=== PATIENT | male | born 1960 | race African-American/Black ===

== ENCOUNTER 2017-06-23 10:38 | Inpatient (IN) | payer OTHER ==
[2017-06-23 12:34] VITALS: BMI 24.3
--- NOTE | 2017-06-23 14:41 | HP ---
COWS - Scale Resting Pulse: 0= [place] 80 or Below Sweatin= Chills/Flushing Restless Observation: 3= Extraneous Movement Pupil Size: 0= Normal to Room Light Bone or Joint Aches: 4=Acute Joint/Muscle Pain Runny Nose/ Eye Tearin= Nasal Congestion GI Upset > 30mins: 2= Nausea/Diarrhea Tremor Observation: 2= Slight Tremor Visible Yawning Observation: 1= 1-2x During Session Anxiety or Irritability: 1=Feels Anxious/Irritable Goose Flesh Skin: 0=Smooth Skin COWS Score: 15 Admission ROS S - HPI Chief Complaint: DETOX TX FOR HEROIN AND COCAINE DEPENDENCE Allergies/Adverse Reactions: Allergies Allergy/AdvReac Type Severity Reaction Status Date / Time No Known Allergies Allergy Verified 06/23/17 12:28 History of Present Illness: 57 Y/O AA/MALE WITH A HX OF HEROIN AND COCAINE DEPENDENCE SEEKING DETOX TX Exam Limitations: No Limitations - Ebola screening Have you traveled outside of the country in the last 21 days: No Have you had contact with anyone from an Ebola affected area: No Have you been sick,other than usual withdrawal symptoms: No Do you have a fever: No - Review of Systems Constitutional: Chills, Loss of Appetite, Night Sweats, Changes in sleep EENT: reports: Cataracts (BOTH EYES), Blurred Vision (WEARS GLASSES), Tearing, Nose Congestion Respiratory: reports: No Symptoms reported Cardiac: reports: No Symptoms Reported GI: reports: Constipated, Diarrhea, Nausea, Poor Appetite, Poor Fluid Intake : reports: Dysuria Musculoskeletal: reports: Back Pain Integumentary: reports: Other (LEFT HEEL HEALING WOUND DUE TO BUMPING LEG ON DOOR) Neuro: reports: No Symptoms reported Endocrine: reports: No Symptoms Reported Hematology: reports: Anemia Psychiatric: reports: Orientated x3, Anxious Other Systems: Reviewed and Negative Patient History - Patient Medical History Hx Anemia: Yes (IN THE PAST) Hx Asthma: No Hx Chronic Obstructive Pulmonary Disease (COPD): No Hx Cardiac Disorders: No Hx Hypertension: Yes (on meds.) HX Cerebrovascular Accident: No Hx Seizures: No Hx Diabetes: No Hx Gastrointestinal Disorders: No Hx Genitourinary Disorders: No Hx Sexually Transmitted Disorders: No Hx Renal Disease (ESRD): No Hx Thyroid Disease: No Hx Human Immunodeficiency Virus (HIV): No (NEGATIVE HX) Hx Hepatitis C: No Hx Depression: No Hx Suicide Attempt: No (DENIES) Hx Bipolar Disorder: No Hx Schizophrenia: No Other Medical History: HX RIGHT WRIST FX WITH CAST IN 1980. - Patient Surgical History Past Surgical History: Yes Hx Cataract Extraction: Yes (BOTH EYES) Hx Breast Biopsy: No Hx Abdominal Surgery: No Hx Appendectomy: No Hx Cholecystectomy: No Hx Genitourinary Surgery: No Hx Orthopedic Surgery: No Other Surgical History: Sx detached retina R eye. in 12/24 Anesthesia Reaction: No - PPD History Previous Implant?: Yes Documented Results: Positive w/o proof Implanted On Prior [facility] Admission?: No Results: CXR TBD PPD to be Administered?: No - Reproductive History Patient is a Female of Child Bearing Age (11 -55 yrs old): No (MALE) Patient : (N/A) - Smoking Cessation Smoking history: Current every day smoker Have you smoked in the past 12 months: Yes Aproximately how many cigarettes per day: 10 Hx Chewing Tobacco Use: No Initiated information on smoking cessation: Yes 'Breaking Loose' booklet given: 06/23/17 - Substance & Tx. History Hx Alcohol Use: No (DENIES) Hx Substance Use: Yes (HEROIN/COCAINE) Substance Use Type: Cocaine, Heroin Hx Substance Use Treatment: Yes (RECENT LAST TX AT [facility]) - Substances Abused Heroin Route: Inhalation Frequency: Daily Amount used: 9-10 BAGS Age of first use: 17 Date of Last Use: 06/23/17 Cocaine Route: Inhalation Frequency: 1-3 times last 30 days Amount used: $50 Age of first use: 21 Date of Last Use: 06/18/17 Family Disease History - Family Disease History Family Disease History: Diabetes: Mother (HTN-), Other: Father ( ), Mother Admission Physical Exam [facility] - Vital Signs Vital Signs: Vital Signs - 24 hr 06/23/17 12:33 Temperature 97 F L Pulse Rate 59 L Respiratory 20 Rate Blood Pressure 146/84 - Physical General Appearance: Yes: Moderate Distress, Irritable, Anxious HEENTM: Yes: EOMI, Normocephalic, KELLE, Pharynx Normal Respiratory: Yes: Chest Non-Tender, Lungs Clear, Normal Breath Sounds, No Respiratory Distress Neck: Yes: No masses,lesions,Nodules, Supple, Trachea in good position Breast: Yes: Breast Exam Deferred Cardiology: Yes: Regular Rhythm, Regular Rate, S1, S2 Abdominal: Yes: Normal Bowel Sounds, Non Tender, Soft Genitourinary: Yes: Other Back: Yes: Within Normal Limits Musculoskeletal: Yes: full range of Motion, Gait Steady Extremities: Yes: Normal Range of Motion, Non-Tender Neurological: Yes: diagnostic cardiac sonographer II-XII NML intact, Fully Oriented, Alert, Motor Strength 5/5 Integumentary: Yes: Dry, Warm Lymphatic: Yes: Within Normal Limits - Diagnostic (1) Opioid dependence with withdrawal Status: Acute (2) Cocaine dependence, uncomplicated Status: Acute (3) Hypertension Status: Acute Qualifiers: Hypertension type: essential hypertension Qualified Code(s): I10 - Essential (primary) hypertension (4) History of anemia Status: Suspected (5) Cataract of both eyes Status: Chronic Qualifiers: Cataract type: juvenile Infantile/juvenile cataract type: unspecified Qualified Code(s): H26.003 - Unspecified infantile and juvenile cataract , bilateral Comment: PT STATES HAD CATARACT AT 16 YRS OLD. Cleared for Admission [facility] - Detox or Rehab [facility] Level of Care: Medically Managed Detox Regimen/Protocol: Methadone [facility] Breath Alcohol Content Breath Alcohol Content: 0 Urine Drug Screen - Results Drug Screen Negative: No Urine Drug Screen Results: PAT-Cocaine, OPI-Opiates, MTD-Methadone
[2017-06-23] MEDS ORDERED: MAGNESIUM CITRATE 300 ML BOTTLE PO PRN (14:55)
[2017-06-23] MEDS ORDERED: hydrOXYzine PAMOATE 25 MG CAPSULE (FP) PO PRN (14:55)
[2017-06-23] MEDS ORDERED: MAG HYDROX/AL HYDROX/SIMETH 30 ML UNIT-DOSE CUP PO PRN (14:55)
[2017-06-23] MEDS ORDERED: MENTHOL/PHENOL 1 EACH UD MM PRN (14:55)
[2017-06-23] MEDS ORDERED: ACETAMINOPHEN 325 MG TABLET (FP) PO PRN (14:55)
[2017-06-23] MEDS ORDERED: LOPERAMIDE HCL 2 MG CAPSULE PO PRN (14:55)
[2017-06-23] MEDS ORDERED: P-EPHED 60MG/TRIPROLIDI 2.5MG TABLET PO PRN (14:55)
[2017-06-23] MEDS ORDERED: guaiFENesin/D-METHORPHAN HB 10 ML UNIT-DOSE CUPS PO PRN (14:55)
[2017-06-23] MEDS ORDERED: MAGNESIUM HYDROX 2400MG/30ML ORAL SUSPENSION 30 ML CUP PO PRN (14:55)
[2017-06-23] MEDS ORDERED: IBUPROFEN 400 MG TABLET (FP) PO PRN (14:55)
[2017-06-23] MEDS ORDERED: NICOTINE POLACRILEX 2 MG GUM BC PRN (14:55)
[2017-06-23] MEDS: diazePAM 5 MG TABLET PO PRN ×2 (17:57→22:44)
[2017-06-23] MEDS: NICOTINE 14 MG/24 HOURS TOPICAL PATCH TD SCH (17:59)
[2017-06-23] MEDS ORDERED: METHADONE HCL 10 MG TABLET (FOR DETOX USE ONLY) PO ONE ×2 (18:00→23:00)
[2017-06-23 20:24] LABS: MCH 27.5 pg (25.7-33.7); MCHC 32.8 g/dl (32.0-35.9); MEAN CELL VOLUME 83.7 fl (80-96); MEAN PLT VOLUME 7.6 fl (7.5-11.1); PLATELET COUNT 305 K/MM3 (134-434); RDW 15.1 % (11.9-15.9); WHITE BLOOD COUNT 8.8 K/mm3 (4.0-10.0)
[2017-06-23 20:28] LABS: SICKLE CELL SCREEN NEGATIVE (NEGATIVE)
[2017-06-23 20:33] LABS: ALBUMIN 3.9 g/dl (3.4-5.0); ANION GAP 6 (8-16); CALCIUM 9.3 mg/dL (8.5-10.1); CO2 27 mmol/L (21-32); CREATININE 1.1 mg/dL (0.7-1.3); GLUCOSE,RANDOM 104 mg/dL (74-106); SGOT/AST 15 U/L (15-37); SGPT/ALT 26 U/L (12-78)
[2017-06-23 20:35] LABS: ALK PHOS 72 U/L (45-117); BILIRUBIN,TOTAL 0.4 mg/dL (0.2-1.0); TOT PROT 7.8 g/dl (6.4-8.2)
[2017-06-23] MEDS: BACITRACIN 0.9 GM PACKET TP SCH (22:44)
[2017-06-23] MEDS: THIAMINE HCL 100 MG TABLET (FP) PO SCH (22:44)
[2017-06-23] MEDS: diphenhydrAMINE HCL 50 MG CAPSULE PO PRN (22:45)
[2017-06-24] MEDS ORDERED: METHADONE HCL 10 MG TABLET (FOR DETOX USE ONLY) PO ONE (10:00)
[2017-06-24 10:13] LABS: HIV 1 & 2 AB NEGATIVE; HIV 1 AGp24 NEGATIVE
[2017-06-24] MEDS: BACITRACIN 0.9 GM PACKET TP SCH ×2 (10:17→21:51)
[2017-06-24] MEDS: diazePAM 5 MG TABLET PO PRN ×3 (10:18→21:51)
[2017-06-24] MEDS: PRENATAL VITAMINS W/ FOLIC ACID TABLET (FP) PO SCH (10:18)
[2017-06-24] MEDS: amLODIPine BESYLATE 5 MG TABLET (FP) PO SCH (10:18)
[2017-06-24] MEDS: NICOTINE 14 MG/24 HOURS TOPICAL PATCH TD SCH (10:18)
--- NOTE | 2017-06-24 10:55 | PN ---
[facility] COWS - Scale Resting Pulse: 0= [place] 80 or Below Sweatin=Flushed/Facial Moisture Restless Observation: 1= Difficult to Sit Still Pupil Size: 0= Normal to Room Light Bone or Joint Aches: 2= Severe Diffuse Aches Runny Nose/ Eye Tearin= Nasal Congestion GI Upset > 30mins: 1= Stomach Cramp Tremor Observation of Outstretched Hands: 2= Slight Tremor Visible Yawning Observation: 2= >3x During Session Anxiety or Irritability: 2=Irritable/Anxious Goose Flesh Skin: 0=Smooth Skin COWS Score: 13 [facility] Progress Note (SOAP) Subjective: sweats interrupted sleep agitation irritable body aches Objective: 06/24/17 10:54 Vital Signs Temperature 98.2 F 06/24/17 10:35 Pulse Rate 64 06/24/17 10:35 Respiratory Rate 18 06/24/17 10:35 Blood Pressure 162/77 06/24/17 10:35 O2 Sat by Pulse Oximetry (%) Laboratory Tests 06/23/17 06/23/17 06/23/17 12:30 13:00 13:00 WBC 8.8 RBC 4.84 Hgb 13.3 Hct 40.5 MCV 83.7 MCH 27.5 MCHC 32.8 RDW 15.1 Plt Count 305 MPV 7.6 Sickle Cell Screen Negative Sodium 139 Potassium 3.9 Chloride 106 Carbon Dioxide 27 Anion Gap 6 L BUN 12 Creatinine 1.1 Creat Clearance w eGFR > 60 Random Glucose 104 Calcium 9.3 Total Bilirubin 0.4 AST 15 ALT 26 Alkaline Phosphatase 72 Total Protein 7.8 Albumin 3.9 RPR Titer HIV 1&2 Antibody Screen Negative HIV P24 Antigen Negative 06/23/17 13:00 WBC RBC Hgb Hct MCV MCH MCHC RDW Plt Count MPV Sickle Cell Screen Sodium Potassium Chloride Carbon Dioxide Anion Gap BUN Creatinine Creat Clearance w eGFR Random Glucose Calcium Total Bilirubin AST ALT Alkaline Phosphatase Total Protein Albumin RPR Titer Nonreactive HIV 1&2 Antibody Screen HIV P24 Antigen awake/alert ambulating no acute distress Assessment: 06/24/17 10:55 withdrawal sx Plan: continue detox increase fluids
--- NOTE | 2017-06-24 15:02 | EKG ---
Test Reason : Blood Pressure : / mmHG Vent. Rate : 063 BPM Atrial Rate : 063 BPM P-R Int : 154 ms QRS Dur : 082 ms QT Int : 432 ms P-R-T Axes : 053 032 029 degrees QTc Int : 442 ms NORMAL SINUS RHYTHM NORMAL ECG NO PREVIOUS ECGS AVAILABLE Confirmed by NANCY GAMING MD ([id number]) on 06/24/2017 3:02:16 PM Referred By: Quirino Jones Confirmed By:NANCY GAMING MD
[2017-06-24 17:23] LABS: URINE APPEARANCE CLEAR; URINE BILIRUBIN 1+ (NEGATIVE); URINE BLOOD NEGATIVE (NEGATIVE); URINE COLOR YELLOW; URINE GLUCOSE (UA) NEGATIVE (NEGATIVE); URINE KETONE NEGATIVE (NEGATIVE); URINE LEUK ESTERASE NEGATIVE (NEGATIVE); URINE NITRITE NEGATIVE (NEGATIVE); URINE PROTEIN TRACE (NEGATIVE); URINE UROBILINOGEN 0.2 mg/dL (0.2-1.0)
[2017-06-24] MEDS: diphenhydrAMINE HCL 50 MG CAPSULE PO PRN (21:51)
[2017-06-24] MEDS: THIAMINE HCL 100 MG TABLET (FP) PO SCH (21:51)
[2017-06-25] MEDS ORDERED: METHADONE HCL 5 MG TABLET (FOR DETOX USE ONLY) PO ONE (10:00)
[2017-06-25] MEDS: PRENATAL VITAMINS W/ FOLIC ACID TABLET (FP) PO SCH (11:01)
[2017-06-25] MEDS: BACITRACIN 0.9 GM PACKET TP SCH ×2 (11:01→21:37)
[2017-06-25] MEDS: amLODIPine BESYLATE 5 MG TABLET (FP) PO SCH (11:01)
[2017-06-25] MEDS: NICOTINE 14 MG/24 HOURS TOPICAL PATCH TD SCH (11:02)
[2017-06-25] MEDS: diazePAM 5 MG TABLET PO PRN ×2 (11:04→18:56)
--- NOTE | 2017-06-25 11:39 | PN ---
S COWS - Scale Resting Pulse: 0= [place] 80 or Below Sweatin=Flushed/Facial Moisture Restless Observation: 1= Difficult to Sit Still Pupil Size: 0= Normal to Room Light Bone or Joint Aches: 2= Severe Diffuse Aches Runny Nose/ Eye Tearin= Nasal Congestion GI Upset > 30mins: 1= Stomach Cramp Tremor Observation of Outstretched Hands: 2= Slight Tremor Visible Yawning Observation: 2= >3x During Session Anxiety or Irritability: 2=Irritable/Anxious Goose Flesh Skin: 3=Piloerection COWS Score: 16 S Progress Note (SOAP) Subjective: tired sluggish sweats chills irritable body aches Objective: 06/25/17 11:38 Vital Signs Temperature 97.7 F 06/25/17 10:00 Pulse Rate 64 06/25/17 10:00 Respiratory Rate 20 06/25/17 10:00 Blood Pressure 147/88 06/25/17 10:00 O2 Sat by Pulse Oximetry (%) Laboratory Tests 06/23/17 06/23/17 06/23/17 12:30 13:00 13:00 WBC 8.8 RBC 4.84 Hgb 13.3 Hct 40.5 MCV 83.7 MCH 27.5 MCHC 32.8 RDW 15.1 Plt Count 305 MPV 7.6 Sickle Cell Screen Negative Sodium Potassium Chloride Carbon Dioxide Anion Gap BUN Creatinine Creat Clearance w eGFR Random Glucose Calcium Total Bilirubin AST ALT Alkaline Phosphatase Total Protein Albumin Urine Color Urine Appearance Urine pH Ur Specific Moose Urine Protein Urine Glucose (UA) Urine Ketones Urine Blood Urine Nitrite Urine Bilirubin Urine Urobilinogen Ur Leukocyte Esterase RPR Titer Hepatitis C Antibody <0.1 HIV 1&2 Antibody Screen Negative HIV P24 Antigen Negative 06/23/17 06/23/17 06/23/17 13:00 13:00 15:00 WBC RBC Hgb Hct MCV MCH MCHC RDW Plt Count MPV Sickle Cell Screen Sodium 139 Potassium 3.9 Chloride 106 Carbon Dioxide 27 Anion Gap 6 L BUN 12 Creatinine 1.1 Creat Clearance w eGFR > 60 Random Glucose 104 Calcium 9.3 Total Bilirubin 0.4 AST 15 ALT 26 Alkaline Phosphatase 72 Total Protein 7.8 Albumin 3.9 Urine Color Yellow Urine Appearance Clear Urine pH 6.0 Ur Specific Moose >= 1.030 H Urine Protein Trace H Urine Glucose (UA) Negative Urine Ketones Negative Urine Blood Negative Urine Nitrite Negative Urine Bilirubin 1+ H Urine Urobilinogen 0.2 Ur Leukocyte Esterase Negative RPR Titer Nonreactive Hepatitis C Antibody HIV 1&2 Antibody Screen HIV P24 Antigen awake/alert ambulating no acute distress Assessment: 06/25/17 11:38 withdrawal sx Plan: continue detox increase fluids
[2017-06-25] MEDS: diphenhydrAMINE HCL 50 MG CAPSULE PO PRN (21:38)
[2017-06-25] MEDS: THIAMINE HCL 100 MG TABLET (FP) PO SCH (21:38)
[2017-06-26] MEDS ORDERED: METHADONE HCL 5 MG TABLET (FOR DETOX USE ONLY) PO ONE (10:00)
[2017-06-26] MEDS: BACITRACIN 0.9 GM PACKET TP SCH ×2 (10:26→22:21)
[2017-06-26] MEDS: amLODIPine BESYLATE 5 MG TABLET (FP) PO SCH (10:26)
[2017-06-26] MEDS: PRENATAL VITAMINS W/ FOLIC ACID TABLET (FP) PO SCH (10:26)
[2017-06-26] MEDS: diazePAM 5 MG TABLET PO PRN (10:26)
[2017-06-26] MEDS: NICOTINE 14 MG/24 HOURS TOPICAL PATCH TD SCH (10:26)
--- NOTE | 2017-06-26 14:13 | PN ---
BHS Progress Note (SOAP) Subjective: alert,irritable,anxious,interrupted sleep,pain in the body and back Objective: 06/26/17 14:12 Vital Signs Temperature 97.0 F L 06/26/17 09:57 Pulse Rate 58 L 06/26/17 09:57 Respiratory Rate 18 06/26/17 09:57 Blood Pressure 156/78 06/26/17 09:57 O2 Sat by Pulse Oximetry (%) Assessment: 06/26/17 14:12 withdrawal symptom Plan: continue detox
[2017-06-26] MEDS: THIAMINE HCL 100 MG TABLET (FP) PO SCH (22:21)
[2017-06-26] MEDS: diphenhydrAMINE HCL 50 MG CAPSULE PO PRN (22:21)
--- NOTE | 2017-06-27 08:45 | PN ---
S Progress Note (SOAP) Subjective: ALERT,NO COMPLAINT Objective: 06/27/17 08:44 Vital Signs Temperature 96.9 F L 06/27/17 06:27 Pulse Rate 52 L 06/27/17 06:27 Respiratory Rate 16 06/27/17 06:27 Blood Pressure 146/76 06/27/17 06:27 O2 Sat by Pulse Oximetry (%) Assessment: 06/27/17 08:44 STABLE,NO WITHDRAWAL SYMPTOM Plan: DISCHARGE TODAY,FOLLOW UP WITH AFTER CARE PROGRAM ARRANGEMENT
--- NOTE | 2017-06-27 08:46 | DS ---
[facility] Detox Discharge Summary Admission Date: 06/23/17 Discharge Date: 06/27/17 - History Present History: Cocaine Dependence, Opioid Dependence Additional Comments: FOLLOW UP WITH AFTER CARE PROGRAM ARRANGEMENT Pertinent Past History: HYPERTENSION CATARACT BOTH EYES - Physical Exam Results Vital Signs: Vital Signs Temperature 96.9 F L 06/27/17 06:27 Pulse Rate 52 L 06/27/17 06:27 Respiratory Rate 16 06/27/17 06:27 Blood Pressure 146/76 06/27/17 06:27 O2 Sat by Pulse Oximetry (%) Pertinent Admission Physical Exam Findings: WITHDRAWAL SYMPTOM - Treatment Hospital Course: Detox Protocol Followed, Detoxed Safely, Responded well, Discharged Condition Good Patient has Accepted a Rehab Referral to: DECLINED - Medication Discharge Medications: Ambulatory Orders Amlodipine Besylate [Norvasc -] 5 mg PO DAILY 06/23/17 - Diagnosis (1) Opioid dependence with withdrawal Current Visit: Yes Status: Acute (2) Cocaine dependence, uncomplicated Current Visit: Yes Status: Acute (3) Hypertension Current Visit: Yes Status: Acute (4) Cataract of both eyes Current Visit: Yes Status: Chronic Qualifiers: Cataract type: juvenile Infantile/juvenile cataract type: unspecified Qualified Code(s): H26.003 - Unspecified infantile and juvenile cataract , bilateral - AMA Did Patient Leave Against Medical Advice: No
[2017-06-27] MEDS: amLODIPine BESYLATE 5 MG TABLET (FP) PO SCH (09:24)
[2017-06-27] MEDS: BACITRACIN 0.9 GM PACKET TP SCH (09:24)
[2017-06-27] MEDS: PRENATAL VITAMINS W/ FOLIC ACID TABLET (FP) PO SCH (09:24)
[2017-06-27] MEDS: NICOTINE 14 MG/24 HOURS TOPICAL PATCH TD SCH (09:25)
[2017-06-27] MEDS ORDERED: METHADONE HCL 10 MG TABLET (FOR DETOX USE ONLY) PO ONE (10:00)
[2017-06-27 10:47] VITALS: BP 144/77; PULSE 57; TEMP 97
[2017-06-28] MEDS ORDERED: METHADONE HCL 5 MG TABLET (FOR DETOX USE ONLY) PO ONE (06:00)
== END 2017-06-27 09:37 | disposition home or self-care (01) | DRG 773 ==
LOC: YASAS 10:38 → Y6N 15:26
PROVIDERS: ADMIT Internal Medicine; ATTEND Internal Medicine
PROC: HZ2ZZZZ Detoxification Services for Substance Abuse Treatment (ICD-10-PCS; principal; 2017-06-23)
DX: F11.23 Opioid dependence with withdrawal (principal); F14.20 Cocaine dependence, uncomplicated; F17.210 Nicotine dependence, cigarettes, uncomplicated; I10 Essential (primary) hypertension; H26.8 Other specified cataract; Z86.2 Personal history of diseases of the blood and blood-forming organs and certain disorders involving the immune mechanism
CPT/HCPCS: 36415; 71020-TC; 80053; 81003; 85027; 85660; 86593; 86803; 87389; 93005; 93010

== ENCOUNTER 2017-11-17 00:58 | Inpatient (IN) | payer OTHER ==
[2017-11-17] MEDS ORDERED: MAG HYDROX/AL HYDROX/SIMETH 30 ML UNIT-DOSE CUP PO PRN (01:05)
[2017-11-17] MEDS ORDERED: MAGNESIUM CITRATE 300 ML BOTTLE PO PRN (01:05)
[2017-11-17] MEDS ORDERED: LOPERAMIDE HCL 2 MG CAPSULE PO PRN (01:05)
[2017-11-17] MEDS ORDERED: MAGNESIUM HYDROX 2400MG/30ML ORAL SUSPENSION 30 ML CUP PO PRN (01:05)
[2017-11-17] MEDS ORDERED: guaiFENesin/D-METHORPHAN HB 10 ML UNIT-DOSE CUPS PO PRN (01:05)
[2017-11-17] MEDS ORDERED: ACETAMINOPHEN 325 MG TABLET (FP) PO PRN (01:05)
[2017-11-17] MEDS ORDERED: MENTHOL/PHENOL 1 EACH UD MM PRN (01:05)
[2017-11-17] MEDS ORDERED: IBUPROFEN 400 MG TABLET (FP) PO PRN (01:05)
[2017-11-17] MEDS ORDERED: P-EPHED 60MG/TRIPROLIDI 2.5MG TABLET PO PRN (01:05)
[2017-11-17] MEDS ORDERED: METHADONE HCL 10 MG TABLET (FOR DETOX USE ONLY) PO ONE ×3 (01:05→23:00)
--- NOTE | 2017-11-17 01:08 | HP ---
COWS - Scale Resting Pulse: 0= [place] 80 or Below Sweatin=Flushed/Facial Moisture Restless Observation: 1= Difficult to Sit Still Pupil Size: 1= Pupils >than Normal Bone or Joint Aches: 2= Severe Diffuse Aches Runny Nose/ Eye Tearin= Runny Nose/Eyes GI Upset > 30mins: 2= Nausea/Diarrhea Tremor Observation: 1= Tremor Hitchcock, Not Seen Yawning Observation: 2= >3x During Session Anxiety or Irritability: 2=Irritable/Anxious Goose Flesh Skin: 0=Smooth Skin COWS Score: 15 Admission ROS S - [facility] Chief Complaint: WITHDRAWAL SYMPTOMS Allergies/Adverse Reactions: Allergies Allergy/AdvReac Type Severity Reaction Status Date / Time No Known Allergies Allergy Verified 06/23/17 12:28 History of Present Illness: 57 Y.O. MAN WITH AN EXTENSIVE HISTORY OF OPIOID DEPENDENCE IS HERE SEEKING DETOX. Exam Limitations: No Limitations - Ebola screening Have you traveled outside of the country in the last 21 days: No Have you had contact with anyone from an Ebola affected area: No Have you been sick,other than usual withdrawal symptoms: No Do you have a fever: No - Review of Systems Constitutional: Chills, Night Sweats, Changes in sleep EENT: reports: Cataracts, Tearing Respiratory: reports: No Symptoms reported Cardiac: reports: No Symptoms Reported GI: reports: Diarrhea, Nausea, Vomiting, Abdominal cramping : reports: No Symptoms Reported Musculoskeletal: reports: Back Pain, Neck Pain Integumentary: reports: No Symptoms Reported Neuro: reports: No Symptoms reported Endocrine: reports: No Symptoms Reported Hematology: reports: No Symptoms Reported Psychiatric: reports: Mood/Affect Appropiate, Anxious Other Systems: Reviewed and Negative Patient History - Patient Medical History Hx Anemia: Yes (IN THE PAST) Hx Asthma: No Hx Chronic Obstructive Pulmonary Disease (COPD): No Hx Cancer: No Hx Cardiac Disorders: No Hx Congestive Heart Failure: No Hx Hypertension: Yes (NOT ON MEDS) Hx Hypercholesterolemia: No Hx Pacemaker: No HX Cerebrovascular Accident: No Hx Seizures: No Hx Dementia: No Hx Diabetes: No Hx Gastrointestinal Disorders: No Hx Liver Disease: No Hx Genitourinary Disorders: No Hx Sexually Transmitted Disorders: No Hx Renal Disease (ESRD): No Hx Thyroid Disease: No Hx Human Immunodeficiency Virus (HIV): No (NEGATIVE HX) Hx Hepatitis C: No Hx Depression: No Hx Suicide Attempt: No (DENIES) Hx Bipolar Disorder: No Hx Schizophrenia: No - Patient Surgical History Past Surgical History: Yes Hx Neurologic Surgery: No Hx Cataract Extraction: Yes (BOTH EYES) Hx Cardiac Surgery: No Hx Lung Surgery: No Hx Breast Surgery: No Hx Breast Biopsy: No Hx Abdominal Surgery: No Hx Appendectomy: No Hx Cholecystectomy: No Hx Genitourinary Surgery: No Hx Orthopedic Surgery: No Other Surgical History: Sx detached retina R eye. in 12/24 Anesthesia Reaction: No - PPD History Results: CXR PPD to be Administered?: No - Reproductive History Patient is a Female of Child Bearing Age (11 -55 yrs old): No - Smoking Cessation Smoking history: Current every day smoker Have you smoked in the past 12 months: Yes Aproximately how many cigarettes per day: 10 Hx Chewing Tobacco Use: No Initiated information on smoking cessation: Yes 'Breaking Loose' booklet given: 11/17/17 - Substance & Tx. History Hx Alcohol Use: No Hx Substance Use: Yes Substance Use Type: Heroin Hx Substance Use Treatment: Yes (DETOX: 06/2017) - Substances Abused Heroin Route: Inhalation Frequency: Daily Amount used: 8 BAGS Age of first use: 23 Date of Last Use: 11/17/17 Family Disease History - Family Disease History Family Disease History: Diabetes: Mother (HTN-), Other: Father ( ), Mother Admission Physical Exam [facility] - Vital Signs Vital Signs: Last Vital Signs Temp Pulse Resp BP Pulse Ox 97.8 F 77 16 142/84 11/17/17 01:17 11/17/17 01:17 11/17/17 01:17 11/17/17 01:17 - Physical General Appearance: Yes: Anxious HEENTM: Yes: Rhinorrhea, Other (Cataract of right eye; minimal vison) Respiratory: Yes: Chest Non-Tender, Lungs Clear, Normal Breath Sounds Neck: Yes: No masses,lesions,Nodules, Trachea in good position Breast: Yes: Breast Exam Deferred Cardiology: Yes: Regular Rhythm, Regular Rate Abdominal: Yes: Normal Bowel Sounds, Non Tender, Flat, Soft Genitourinary: Yes: Other (NO COMPLAINTS REPORTED) Back: Yes: Normal Inspection Musculoskeletal: Yes: Back pain Extremities: Yes: Normal Inspection, Normal Range of Motion, Non-Tender Neurological: Yes: Alert, Normal Mood/Affect, Normal Response Integumentary: Yes: Normal Color, Dry, Warm Lymphatic: Yes: Within Normal Limits - Diagnostic (1) Blindness of right eye Current Visit: Yes Status: Chronic (2) Opioid dependence with withdrawal Current Visit: Yes Status: Chronic (3) Cataract of both eyes Current Visit: Yes Status: Chronic Qualifiers: Cataract type: juvenile Infantile/juvenile cataract type: unspecified Qualified Code(s): H26.003 - Unspecified infantile and juvenile cataract, bilateral Comment: PT STATES HAD CATARACT AT 16 YRS OLD. (4) Hypertension Current Visit: Yes Status: Chronic Qualifiers: Hypertension type: essential hypertension Qualified Code(s): I10 - Essential (primary) hypertension Cleared for Admission [facility] - Detox or Rehab S Level of Care: Medically Managed Detox Regimen/Protocol: Methadone [facility] Breath Alcohol Content Breath Alcohol Content: 0 Vital Signs - Vital Signs Vital Signs Refused: No Temperature: 97.8 F Temperature Source: Oral Pulse Rate: 77 Respiratory Rate: 16 Blood Pressure: 142/84 BP Location: Left Arm Blood Pressure Position: Sitting - Height Height: 6 ft 7 in - Weight Weight: 200 lb Weight Measurement Method: Stated by Patient Body Mass Index (BMI): 22.5 Urine Drug Screen - Control Is Test Valid: Yes - Results Drug Screen Negative: No Urine Drug Screen Results: OPI-Opiates, MTD-Methadone, OXY-Oxycodone
[2017-11-17 01:11] VITALS: BMI 22.5
[2017-11-17] MEDS ORDERED: cloNIDine HCL 0.1 MG TABLET PO PRN (01:44)
[2017-11-17] MEDS: diazePAM 5 MG TABLET PO PRN ×2 (01:51→22:12)
[2017-11-17] MEDS ORDERED: amLODIPine BESYLATE 5 MG TABLET (FP) PO SCH (06:00)
--- NOTE | 2017-11-17 09:38 | EKG ---
Test Reason : Blood Pressure : / mmHG Vent. Rate : 064 BPM Atrial Rate : 064 BPM P-R Int : 142 ms QRS Dur : 090 ms QT Int : 438 ms P-R-T Axes : 057 031 031 degrees QTc Int : 451 ms NORMAL SINUS RHYTHM technically difficult study ABNORMAL ECG WHEN COMPARED WITH ECG OF 23-JUN-2017 16:17, NO SIGNIFICANT CHANGE WAS FOUND Confirmed by DAT TREJO MD ([id number]) on 11/17/2017 9:38:18 AM Referred By: Confirmed By:DAT TREJO MD
--- NOTE | 2017-11-17 09:38 | EKG ---
Test Reason : Blood Pressure : / mmHG Vent. Rate : 056 BPM Atrial Rate : 056 BPM P-R Int : 158 ms QRS Dur : 088 ms QT Int : 438 ms P-R-T Axes : 047 031 011 degrees QTc Int : 422 ms SINUS BRADYCARDIA SEPTAL INFARCT , AGE UNDETERMINED ABNORMAL ECG WHEN COMPARED WITH ECG OF 17-NOV-2017 01:30, NO SIGNIFICANT CHANGE WAS FOUND Confirmed by DAT TREJO MD ([id number]) on 11/17/2017 9:38:35 AM Referred By: Confirmed By:DAT TREJO MD
[2017-11-17 10:20] LABS: HEMATOCRIT 37.9 % (35.4-49); HEMOGLOBIN 11.9 GM/dL (11.7-16.9); MCHC 31.4 g/dl (32.0-35.9); MEAN CELL VOLUME 82.8 fl (80-96); MEAN PLT VOLUME 7.2 fl (7.5-11.1); PLATELET COUNT 232 K/MM3 (134-434); RBC 4.57 M/mm3 (4.00-5.60); RDW 15.4 % (11.9-15.9); WHITE BLOOD COUNT 11.6 K/mm3 (4.0-10.0)
--- NOTE | 2017-11-17 10:23 | PN ---
[facility] COWS - Scale Resting Pulse: 0= [place] 80 or Below Sweatin=Flushed/Facial Moisture Restless Observation: 1= Difficult to Sit Still Pupil Size: 0= Normal to Room Light Bone or Joint Aches: 2= Severe Diffuse Aches Runny Nose/ Eye Tearin= Runny Nose/Eyes GI Upset > 30mins: 2= Nausea/Diarrhea Tremor Observation of Outstretched Hands: 2= Slight Tremor Visible Yawning Observation: 2= >3x During Session Anxiety or Irritability: 2=Irritable/Anxious Goose Flesh Skin: 0=Smooth Skin COWS Score: 15 BHS Progress Note (SOAP) Subjective: irritable agitation sweats chills body aches nausea Objective: 11/17/17 10:20 Vital Signs Temperature 96.8 F L 11/17/17 06:31 Pulse Rate 62 11/17/17 06:31 Respiratory Rate 16 11/17/17 06:31 Blood Pressure 130/60 11/17/17 06:31 O2 Sat by Pulse Oximetry (%) labs pending aaox3 ambulating no acute distress Assessment: 11/17/17 10:21 withdrawal sx Plan: continue detox increase fluids labs pending
[2017-11-17] MEDS: PRENATAL VITAMINS W/ FOLIC ACID TABLET (FP) PO SCH (10:25)
[2017-11-17 10:26] LABS: ANION GAP 7 (8-16); CALCIUM 8.5 mg/dL (8.5-10.1); CHLORIDE 106 mmol/L (98-107); CO2 29 mmol/L (21-32); SODIUM 142 mmol/L (136-145)
[2017-11-17 10:32] LABS: ALBUMIN 3.1 g/dl (3.4-5.0); ALK PHOS 69 U/L (45-117); BILIRUBIN,TOTAL 0.3 mg/dL (0.2-1.0); BLOOD UREA NITROGEN 16 mg/dL (7-18); CREATININE 0.9 mg/dL (0.7-1.3); GLUCOSE,RANDOM 111 mg/dL (74-106); SGOT/AST 12 U/L (15-37); SGPT/ALT 20 U/L (12-78); TOT PROT 6.3 g/dl (6.4-8.2)
[2017-11-17] MEDS: THIAMINE HCL 100 MG TABLET (FP) PO SCH (22:11)
[2017-11-18] MEDS ORDERED: METHADONE HCL 10 MG TABLET (FOR DETOX USE ONLY) PO ONE (10:00)
--- NOTE | 2017-11-18 10:06 | PN ---
[facility] COWS - Scale Resting Pulse: 4= OR > 121 Sweatin=Flushed/Facial Moisture Restless Observation: 1= Difficult to Sit Still Pupil Size: 0= Normal to Room Light Bone or Joint Aches: 2= Severe Diffuse Aches Runny Nose/ Eye Tearin= Runny Nose/Eyes GI Upset > 30mins: 0= None Tremor Observation of Outstretched Hands: 2= Slight Tremor Visible Yawning Observation: 2= >3x During Session Anxiety or Irritability: 2=Irritable/Anxious Goose Flesh Skin: 0=Smooth Skin COWS Score: 17 BHS Progress Note (SOAP) Subjective: irritable agitation sweats shakes interrupted sleep Objective: 11/18/17 10:07 Vital Signs Temperature 98 F 11/18/17 06:28 Pulse Rate 58 L 11/18/17 06:28 Respiratory Rate 16 11/18/17 06:28 Blood Pressure 137/64 11/18/17 06:28 O2 Sat by Pulse Oximetry (%) Laboratory Tests 11/17/17 11/17/17 11/17/17 07:00 07:00 07:00 WBC 11.6 H D RBC 4.57 Hgb 11.9 D Hct 37.9 MCV 82.8 MCH 26.0 MCHC 31.4 L RDW 15.4 Plt Count 232 D MPV 7.2 L Sodium 142 Potassium 4.0 Chloride 106 Carbon Dioxide 29 Anion Gap 7 L BUN 16 D Creatinine 0.9 Creat Clearance w eGFR > 60 Random Glucose 111 H Calcium 8.5 Total Bilirubin 0.3 D AST 12 L ALT 20 D Alkaline Phosphatase 69 Total Protein 6.3 L Albumin 3.1 L D RPR Titer Hepatitis C Antibody <0.1 HIV 1&2 Antibody Screen HIV P24 Antigen 11/17/17 11/17/17 07:00 07:00 WBC RBC Hgb Hct MCV MCH MCHC RDW Plt Count MPV Sodium Potassium Chloride Carbon Dioxide Anion Gap BUN Creatinine Creat Clearance w eGFR Random Glucose Calcium Total Bilirubin AST ALT Alkaline Phosphatase Total Protein Albumin RPR Titer Nonreactive Hepatitis C Antibody HIV 1&2 Antibody Screen Negative HIV P24 Antigen Negative aaox3 ambulating no acute distress Assessment: 11/18/17 10:16 withdrawal sx Plan: continue detox increase fluids clonidine 0.1mg bid
[2017-11-18] MEDS: PRENATAL VITAMINS W/ FOLIC ACID TABLET (FP) PO SCH (10:49)
[2017-11-18] MEDS: cloNIDine HCL 0.1 MG TABLET PO SCH ×2 (10:50→22:03)
[2017-11-18] MEDS: THIAMINE HCL 100 MG TABLET (FP) PO SCH (22:03)
[2017-11-18] MEDS: diazePAM 5 MG TABLET PO PRN (22:03)
[2017-11-19] MEDS: diazePAM 5 MG TABLET PO PRN ×3 (05:56→22:11)
[2017-11-19] MEDS ORDERED: METHADONE HCL 5 MG TABLET (FOR DETOX USE ONLY) PO ONE (10:00)
[2017-11-19] MEDS: PRENATAL VITAMINS W/ FOLIC ACID TABLET (FP) PO SCH (10:42)
[2017-11-19] MEDS: cloNIDine HCL 0.1 MG TABLET PO SCH (10:44)
--- NOTE | 2017-11-19 12:53 | PN ---
BHS Progress Note (SOAP) Subjective: irritable sweats shakes body aches Objective: 11/19/17 12:52 Vital Signs Temperature 96.1 F L 11/19/17 10:41 Pulse Rate 45 L 11/19/17 10:41 Respiratory Rate 18 11/19/17 10:41 Blood Pressure 144/80 11/19/17 10:41 O2 Sat by Pulse Oximetry (%) aaox3 ambulating no acute distress Assessment: 11/19/17 12:53 withdrawal sx Plan: continue detox increase fluids
[2017-11-19] MEDS: cloNIDine HCL 0.1 MG TABLET PO PRN (22:11)
[2017-11-19] MEDS: THIAMINE HCL 100 MG TABLET (FP) PO SCH (22:11)
[2017-11-20] MEDS ORDERED: METHADONE HCL 5 MG TABLET (FOR DETOX USE ONLY) PO ONE (10:00)
[2017-11-20] MEDS: PRENATAL VITAMINS W/ FOLIC ACID TABLET (FP) PO SCH (10:37)
[2017-11-20] MEDS: cloNIDine HCL 0.1 MG TABLET PO PRN ×2 (10:39→22:30)
[2017-11-20] MEDS: hydrOXYzine PAMOATE 50 MG CAPSULE (FP) PO PRN ×2 (10:39→22:30)
--- NOTE | 2017-11-20 13:19 | PN ---
BHS Progress Note (SOAP) Subjective: night sweats anxiety agitation Objective: 11/20/17 13:17 Vital Signs Temperature 97.7 F 11/20/17 10:39 Pulse Rate 53 L 11/20/17 10:39 Respiratory Rate 18 11/20/17 10:39 Blood Pressure 139/99 11/20/17 10:39 O2 Sat by Pulse Oximetry (%) noted Assessment: 11/20/17 13:18 withdrawal sx not in acute distress ambulating steadily in hallway Plan: continue with detox
[2017-11-20] MEDS: THIAMINE HCL 100 MG TABLET (FP) PO SCH (22:30)
[2017-11-21] MEDS ORDERED: METHADONE HCL 10 MG TABLET (FOR DETOX USE ONLY) PO ONE (10:00)
[2017-11-21] MEDS: PRENATAL VITAMINS W/ FOLIC ACID TABLET (FP) PO SCH (10:27)
[2017-11-21] MEDS: cloNIDine HCL 0.1 MG TABLET PO PRN ×2 (10:27→22:29)
[2017-11-21] MEDS: hydrOXYzine PAMOATE 50 MG CAPSULE (FP) PO PRN ×2 (10:27→22:29)
--- NOTE | 2017-11-21 11:32 | PN ---
B[facility] Progress Note (SOAP) Subjective: mild gi distress general body ache can not sleep through the night Objective: 11/21/17 11:31 Vital Signs Temperature 96.1 F L 11/21/17 10:00 Pulse Rate 55 L 11/21/17 10:00 Respiratory Rate 18 11/21/17 10:00 Blood Pressure 118/52 11/21/17 10:00 O2 Sat by Pulse Oximetry (%) Laboratory Last Values WBC 11.6 K/mm3 (4.0-10.0) H D 11/17/17 07:00 RBC 4.57 M/mm3 (4.00-5.60) 11/17/17 07:00 Hgb 11.9 GM/dL (11.7-16.9) D 11/17/17 07:00 Hct 37.9 % (35.4-49) 11/17/17 07:00 MCV 82.8 fl (80-96) 11/17/17 07:00 MCH 26.0 pg (25.7-33.7) 11/17/17 07:00 MCHC 31.4 g/dl (32.0-35.9) L 11/17/17 07:00 RDW 15.4 % (11.9-15.9) 11/17/17 07:00 Plt Count 232 K/MM3 (134-434) D 11/17/17 07:00 MPV 7.2 fl (7.5-11.1) L 11/17/17 07:00 Sodium 142 mmol/L (136-145) 11/17/17 07:00 Potassium 4.0 mmol/L (3.5-5.1) 11/17/17 07:00 Chloride 106 mmol/L (98-107) 11/17/17 07:00 Carbon Dioxide 29 mmol/L (21-32) 11/17/17 07:00 Anion Gap 7 (8-16) L 11/17/17 07:00 BUN 16 mg/dL (7-18) D 11/17/17 07:00 Creatinine 0.9 mg/dL (0.7-1.3) 11/17/17 07:00 Creat Clearance w eGFR > 60 (>60) 11/17/17 07:00 Random Glucose 111 mg/dL (74-106) H 11/17/17 07:00 Calcium 8.5 mg/dL (8.5-10.1) 11/17/17 07:00 Total Bilirubin 0.3 mg/dL (0.2-1.0) D 11/17/17 07:00 AST 12 U/L (15-37) L 11/17/17 07:00 ALT 20 U/L (12-78) D 11/17/17 07:00 Alkaline Phosphatase 69 U/L (45-117) 11/17/17 07:00 Total Protein 6.3 g/dl (6.4-8.2) L 11/17/17 07:00 Albumin 3.1 g/dl (3.4-5.0) L D 11/17/17 07:00 RPR Titer Nonreactive (NONREACTIVE) 11/17/17 07:00 Hepatitis C Antibody <0.1 s/co ratio (0.0-0.9) 11/17/17 07:00 HIV 1&2 Antibody Screen Negative 11/17/17 07:00 HIV P24 Antigen Negative 11/17/17 07:00 lab noted Assessment: 11/21/17 11:31 withdrawal sx Plan: continue detox
[2017-11-21] MEDS: THIAMINE HCL 100 MG TABLET (FP) PO SCH (22:29)
[2017-11-22] MEDS ORDERED: METHADONE HCL 5 MG TABLET (FOR DETOX USE ONLY) PO ONE (06:00)
[2017-11-22 06:45] VITALS: BP 130/90; PULSE 64; TEMP 97.5
--- NOTE | 2017-11-22 08:15 | DS ---
[facility] Detox Discharge Summary Admission Date: 11/17/17 Discharge Date: 11/22/17 - History Present History: Opioid Dependence Additional Comments: FOLLOW UP WITH AFTER CARE PROGRAM ARRANGEMENT Pertinent Past History: HYPERTENSION - Physical Exam Results Vital Signs: Vital Signs Temperature 97.5 F L 11/22/17 06:00 Pulse Rate 64 11/22/17 06:00 Respiratory Rate 18 11/22/17 06:00 Blood Pressure 130/90 11/22/17 06:00 O2 Sat by Pulse Oximetry (%) Pertinent Admission Physical Exam Findings: WITHDRAWAL SYMPTOM Vital Signs Temperature 97.5 F L 11/22/17 06:00 Pulse Rate 64 11/22/17 06:00 Respiratory Rate 18 11/22/17 06:00 Blood Pressure 130/90 11/22/17 06:00 O2 Sat by Pulse Oximetry (%) - Treatment Hospital Course: Detox Protocol Followed, Detoxed Safely, Responded well, Discharged Condition Good Patient has Accepted a Rehab Referral to: DECLINED - Medication Discharge Medications: Ambulatory Orders Amlodipine Besylate [Norvasc -] 5 mg PO DAILY #30 tab 06/27/17 - Diagnosis (1) Opioid dependence with withdrawal Current Visit: Yes Status: Chronic (2) Blindness of right eye Current Visit: Yes Status: Chronic (3) Cataract of both eyes Current Visit: Yes Status: Chronic Qualifiers: Cataract type: juvenile Infantile/juvenile cataract type: unspecified Qualified Code(s): H26.003 - Unspecified infantile and juvenile cataract, bilateral (4) Hypertension Current Visit: Yes Status: Chronic Qualifiers: Hypertension type: essential hypertension Qualified Code(s): I10 - Essential (primary) hypertension - AMA Did Patient Leave Against Medical Advice: No
== END 2017-11-22 08:50 | disposition home or self-care (01) | DRG 773 ==
LOC: YASAS 00:58 → Y6N 01:02
PROVIDERS: ADMIT Internal Medicine; ATTEND Internal Medicine
PROC: HZ2ZZZZ Detoxification Services for Substance Abuse Treatment (ICD-10-PCS; principal; 2017-11-17)
DX: F11.23 Opioid dependence with withdrawal (principal); F14.20 Cocaine dependence, uncomplicated; F17.210 Nicotine dependence, cigarettes, uncomplicated; I10 Essential (primary) hypertension; H54.40 Blindness, one eye, unspecified eye; H26.9 Unspecified cataract; Z86.2 Personal history of diseases of the blood and blood-forming organs and certain disorders involving the immune mechanism
CPT/HCPCS: 36415; 80053; 85027; 86593; 86803; 87389; 93005; 93010

== ENCOUNTER 2018-04-21 17:42 | Inpatient (IN) | payer OTHER ==
[2018-04-21 18:50] VITALS: BMI 25.4
[2018-04-21] MEDS ORDERED: METHADONE HCL 10 MG TABLET (FOR DETOX USE ONLY) PO ONE ×2 (23:00→23:38)
--- NOTE | 2018-04-21 23:29 | HP ---
COWS - Scale Resting Pulse: 0= [place] 80 or Below Sweatin=Flushed/Facial Moisture Restless Observation: 0= Sits Still Pupil Size: 1= Pupils >than Normal Bone or Joint Aches: 2= Severe Diffuse Aches Runny Nose/ Eye Tearin= Runny Nose/Eyes GI Upset > 30mins: 3= Vomiting/Diarrhea (vomiting x 1, diarrhea x 2) Tremor Observation: 2= Slight Tremor Visible Yawning Observation: 0= None Anxiety or Irritability: 4=Extreme Anxiety Goose Flesh Skin: 0=Smooth Skin COWS Score: 16 Admission [facility] Chief Complaint: Heroin withdrawal symptoms Allergies/Adverse Reactions: Allergies Allergy/AdvReac Type Severity Reaction Status Date / Time No Known Allergies Allergy Verified 04/21/18 23:14 History of Present Illness: 57 years old male with a long history 9of heroin dependence is seeking admission to detox. Patient has been in previous detox and reports years of sobriety. He has medical history of hypertension, cataract, anemia, anxiety and nicotine dependence.He denies suicide attempt and suicidal ideation at this time. Exam Limitations: No Limitations - Ebola screening Have you traveled outside of the country in the last 21 days: No (N) Have you had contact with anyone from an Ebola affected area: No Have you been sick,other than usual withdrawal symptoms: No Do you have a fever: No - Review of Systems Constitutional: Chills, Malaise EENT: reports: Cataracts Respiratory: reports: No Symptoms reported Cardiac: reports: No Symptoms Reported GI: reports: Diarrhea, Poor Appetite, Poor Fluid Intake, Vomiting, Abdominal cramping : reports: No Symptoms Reported Musculoskeletal: reports: Back Pain, Muscle Pain Integumentary: reports: Dryness, Sweating Neuro: reports: Tremors Endocrine: reports: No Symptoms Reported Hematology: reports: No Symptoms Reported Psychiatric: reports: Orientated x3, Anxious Other Systems: Reviewed and Negative Patient History - Patient Medical History Hx Anemia: Yes (Not on medication) Hx Asthma: No Hx Chronic Obstructive Pulmonary Disease (COPD): No Hx Cancer: No Hx Cardiac Disorders: No Hx Congestive Heart Failure: No Hx Hypertension: Yes (Amlodipine) Hx Hypercholesterolemia: No Hx Pacemaker: No HX Cerebrovascular Accident: No Hx Seizures: No Hx Dementia: No Hx Diabetes: No Hx Gastrointestinal Disorders: No Hx Liver Disease: No Hx Genitourinary Disorders: No Hx Sexually Transmitted Disorders: No Hx Renal Disease (ESRD): No Hx Thyroid Disease: No Hx Human Immunodeficiency Virus (HIV): No (NEGATIVE HX) Hx Hepatitis C: No Hx Depression: No Hx Suicide Attempt: No (Denies suicide attempt and suicidal ideation at this time) Hx Bipolar Disorder: No Hx Schizophrenia: No Other Medical History: Anxiety -Not on medication - Patient Surgical History Past Surgical History: Yes Hx Neurologic Surgery: No Hx Cataract Extraction: Yes (BOTH EYES) Hx Cardiac Surgery: No Hx Lung Surgery: No Hx Breast Surgery: No Hx Breast Biopsy: No Hx Abdominal Surgery: No Hx Appendectomy: No Hx Cholecystectomy: No Hx Genitourinary Surgery: No Hx Orthopedic Surgery: No Other Surgical History: Sx detached retina R eye. in 12/24 Anesthesia Reaction: No - PPD History Previous Implant?: No (PPD POSITIVE. NO TREATMENT) Results: CXR PPD to be Administered?: No - Reproductive History Patient is a Female of Child Bearing Age (11 -55 yrs old): No (MALE) - Smoking Cessation Smoking history: Current every day smoker Have you smoked in the past 12 months: Yes Aproximately how many cigarettes per day: 10 Hx Chewing Tobacco Use: No Initiated information on smoking cessation: Yes 'Breaking Loose' booklet given: 04/21/18 - Substance & Tx. History Hx Alcohol Use: No Hx Substance Use: Yes Substance Use Type: Heroin, Opiates Hx Substance Use Treatment: Yes ([facility]) - Substances Abused Heroin Route: Inhalation Frequency: Daily Amount used: 12 BAGS Age of first use: 89 Date of Last Use: 04/21/18 Family Disease History - Family Disease History Family Disease History: Diabetes: Mother (HTN-), Other: Father ( ), Mother Admission Physical Exam S - Vital Signs Vital Signs: Vital Signs - 24 hr 04/21/18 18:48 Temperature 97.3 F L Pulse Rate 62 Respiratory 20 Rate Blood Pressure 150/85 - Physical General Appearance: Yes: Moderate Distress, Tremorous, Irritable, Sweating, Anxious HEENTM: Yes: EOMI, Normal ENT Inspection, Normocephalic, Normal Voice, KELLE Respiratory: Yes: Lungs Clear, Normal Breath Sounds, No Respiratory Distress Neck: Yes: Supple Breast: Yes: Breast Exam Deferred Cardiology: Yes: Regular Rhythm, Regular Rate, S1, S2 Abdominal: Yes: Normal Bowel Sounds, Soft Genitourinary: Yes: Within Normal Limits Back: Yes: Normal Inspection Musculoskeletal: Yes: Within Normal Limits Extremities: Yes: Normal Capillary Refill, Tremors Neurological: Yes: Alert, Normal Mood/Affect Integumentary: Yes: Warm Lymphatic: Yes: Within Normal Limits - Diagnostic (1) Blindness of right eye Current Visit: Yes Status: Chronic (2) Cataract of both eyes Current Visit: Yes Status: Chronic Qualifiers: Cataract type: juvenile Infantile/juvenile cataract type: unspecified Qualified Code(s): H26.003 - Unspecified infantile and juvenile cataract, bilateral Comment: PT STATES HAD CATARACT AT 16 YRS OLD. (3) Hypertension Current Visit: Yes Status: Chronic Qualifiers: Hypertension type: essential hypertension Qualified Code(s): I10 - Essential (primary) hypertension (4) Opioid dependence with withdrawal Current Visit: Yes Status: Chronic (5) History of anemia Current Visit: Yes Status: Chronic BHS Breath Alcohol Content Breath Alcohol Content: 0 Urine Drug Screen - Results Drug Screen Negative: No Urine Drug Screen Results: OPI-Opiates, MTD-Methadone
[2018-04-21] MEDS ORDERED: P-EPHED 60MG/TRIPROLIDI 2.5MG TABLET PO PRN (23:38)
[2018-04-21] MEDS ORDERED: IBUPROFEN 400 MG TABLET (FP) PO PRN (23:38)
[2018-04-21] MEDS ORDERED: MAGNESIUM CITRATE 300 ML BOTTLE PO PRN (23:38)
[2018-04-21] MEDS ORDERED: guaiFENesin/D-METHORPHAN HB 10 ML UNIT-DOSE CUPS PO PRN (23:38)
[2018-04-21] MEDS ORDERED: ACETAMINOPHEN 325 MG TABLET (FP) PO PRN (23:38)
[2018-04-21] MEDS ORDERED: LOPERAMIDE HCL 2 MG CAPSULE PO PRN (23:38)
[2018-04-21] MEDS ORDERED: NICOTINE POLACRILEX 2 MG GUM BC PRN (23:38)
[2018-04-21] MEDS ORDERED: MAGNESIUM HYDROX 2400MG/30ML ORAL SUSPENSION 30 ML CUP PO PRN (23:38)
[2018-04-21] MEDS ORDERED: MENTHOL/PHENOL 1 EACH UD MM PRN (23:38)
[2018-04-21] MEDS ORDERED: MAG HYDROX/AL HYDROX/SIMETH 30 ML UNIT-DOSE CUP PO PRN (23:38)
--- NOTE | 2018-04-21 23:43 | HP ---
COWS - Scale Resting Pulse: 0= [place] 80 or Below Sweatin=Flushed/Facial Moisture Restless Observation: 0= Sits Still Pupil Size: 1= Pupils >than Normal Bone or Joint Aches: 2= Severe Diffuse Aches Runny Nose/ Eye Tearin= Runny Nose/Eyes GI Upset > 30mins: 3= Vomiting/Diarrhea (vomiting x 1, diarrhea x 2) Tremor Observation: 2= Slight Tremor Visible Yawning Observation: 0= None Anxiety or Irritability: 4=Extreme Anxiety Goose Flesh Skin: 0=Smooth Skin COWS Score: 16 Admission [facility] Chief Complaint: Heroin withdrawal symptoms Allergies/Adverse Reactions: Allergies Allergy/AdvReac Type Severity Reaction Status Date / Time No Known Allergies Allergy Verified 04/21/18 23:14 History of Present Illness: 57 years old male with a long history of heroin dependence is seeking admission to detox. Patient has b een in previous detox and reports 2 years of sobriety. He has medical history of anemia, hypertension, nicotine dependence and anxiety. He denies suicide attempt and suicidal ideation at this time. Exam Limitations: No Limitations - Ebola screening Have you traveled outside of the country in the last 21 days: No (N) Have you had contact with anyone from an Ebola affected area: No Have you been sick,other than usual withdrawal symptoms: No Do you have a fever: No - Review of Systems Constitutional: Chills, Malaise, Night Sweats, Weakness EENT: reports: Cataracts, Other (right eye blindness) Respiratory: reports: No Symptoms reported Cardiac: reports: No Symptoms Reported GI: reports: Diarrhea, Nausea, Poor Appetite, Poor Fluid Intake, Abdominal cramping : reports: No Symptoms Reported Musculoskeletal: reports: Back Pain Integumentary: reports: Dryness Neuro: reports: Tremors Endocrine: reports: No Symptoms Reported Hematology: reports: No Symptoms Reported Psychiatric: reports: Mood/Affect Appropiate, Orientated x3, Anxious Other Systems: Reviewed and Negative Patient History - Patient Medical History Hx Anemia: Yes (Not on medication) Hx Asthma: No Hx Chronic Obstructive Pulmonary Disease (COPD): No Hx Cancer: No Hx Cardiac Disorders: No Hx Congestive Heart Failure: No Hx Hypertension: Yes (Amlodipine) Hx Hypercholesterolemia: No Hx Pacemaker: No HX Cerebrovascular Accident: No Hx Seizures: No Hx Dementia: No Hx Diabetes: No Hx Gastrointestinal Disorders: No Hx Liver Disease: No Hx Genitourinary Disorders: No Hx Sexually Transmitted Disorders: No Hx Renal Disease (ESRD): No Hx Thyroid Disease: No Hx Human Immunodeficiency Virus (HIV): No (NEGATIVE HX) Hx Hepatitis C: No Hx Depression: No Hx Suicide Attempt: No (Denies suicide attempt and suicidal ideation at this time) Hx Bipolar Disorder: No Hx Schizophrenia: No Other Medical History: Anxiety -Not on medication - Patient Surgical History Past Surgical History: Yes Hx Neurologic Surgery: No Hx Cataract Extraction: Yes (BOTH EYES) Hx Cardiac Surgery: No Hx Lung Surgery: No Hx Breast Surgery: No Hx Breast Biopsy: No Hx Abdominal Surgery: No Hx Appendectomy: No Hx Cholecystectomy: No Hx Genitourinary Surgery: No Hx Orthopedic Surgery: No Other Surgical History: Sx detached retina R eye. in 12/24 Anesthesia Reaction: No - PPD History Previous Implant?: No (PPD POSITIVE. NO TREATMENT) Results: CXR - Smoking Cessation Smoking history: Current every day smoker Have you smoked in the past 12 months: Yes Aproximately how many cigarettes per day: 10 Hx Chewing Tobacco Use: No Initiated information on smoking cessation: Yes 'Breaking Loose' booklet given: 04/21/18 - Substances Abused Heroin Route: Inhalation Frequency: Daily Amount used: 12 BAGS Age of first use: 18 Date of Last Use: 04/21/18 Family Disease History - Family Disease History Family Disease History: Diabetes: Mother (HTN-), Other: Father ( ), Mother Admission Physical Exam BHS - Vital Signs Vital Signs: Vital Signs - 24 hr 04/21/18 18:48 Temperature 97.3 F L Pulse Rate 62 Respiratory 20 Rate Blood Pressure 150/85 - Physical General Appearance: Yes: Moderate Distress, Tremorous, Irritable, Sweating, Anxious HEENTM: Yes: EOMI, Normal ENT Inspection, Normocephalic, Normal Voice, KELLE Respiratory: Yes: Lungs Clear, Normal Breath Sounds, No Respiratory Distress Neck: Yes: Supple Breast: Yes: Breast Exam Deferred Cardiology: Yes: Regular Rhythm, Regular Rate, S1, S2 Abdominal: Yes: Normal Bowel Sounds, Soft Genitourinary: Yes: Within Normal Limits Back: Yes: Normal Inspection Musculoskeletal: Yes: Back pain, Muscle Pain Extremities: Yes: Tremors Neurological: Yes: Alert, Normal Mood/Affect Lymphatic: Yes: Within Normal Limits - Diagnostic (1) Blindness of right eye Current Visit: Yes Status: Chronic (2) Cataract of both eyes Current Visit: Yes Status: Chronic Qualifiers: Cataract type: juvenile Infantile/juvenile cataract type: unspecified Qualified Code(s): H26.003 - Unspecified infantile and juvenile cataract, bilateral Comment: PT STATES HAD CATARACT AT 16 YRS OLD. (3) Hypertension Current Visit: No Status: Chronic Qualifiers: Hypertension type: essential hypertension Qualified Code(s): I10 - Essential (primary) hypertension (4) Opioid dependence with withdrawal Current Visit: Yes Status: Chronic (5) History of anemia Current Visit: Yes Status: Chronic Cleared for Admission S - Detox or Rehab [facility] Level of Care: Medically Managed Detox Regimen/Protocol: Methadone S Breath Alcohol Content Breath Alcohol Content: 0 Urine Drug Screen - Results Drug Screen Negative: No Urine Drug Screen Results: OPI-Opiates, MTD-Methadone
[2018-04-22] MEDS ORDERED: METHADONE HCL 10 MG TABLET (FOR DETOX USE ONLY) PO ONE ×4 (00:29→23:00)
[2018-04-22] MEDS: diazePAM 5 MG TABLET PO PRN ×3 (01:11→22:22)
[2018-04-22] MEDS: MELATONIN 5 MG TABLETS PO PRN (01:12)
--- NOTE | 2018-04-22 09:47 | EKG ---
Test Reason : Blood Pressure : / mmHG Vent. Rate : 055 BPM Atrial Rate : 055 BPM P-R Int : 158 ms QRS Dur : 094 ms QT Int : 438 ms P-R-T Axes : 063 036 047 degrees QTc Int : 419 ms SINUS BRADYCARDIA MINIMAL VOLTAGE CRITERIA FOR LVH, MAY BE NORMAL VARIANT Confirmed by AGUSTO SAMSON MD ([id number]) on 04/22/2018 9:46:59 AM Referred By: Confirmed By:AGUSTO SAMSON MD
[2018-04-22 09:58] LABS: HEMATOCRIT 39.3 % (35.4-49); HEMOGLOBIN 12.9 GM/dL (11.7-16.9); MCHC 32.8 g/dl (32.0-35.9); MEAN CELL VOLUME 82.3 fl (80-96); MEAN PLT VOLUME 7.1 fl (7.5-11.1); PLATELET COUNT 254 K/MM3 (134-434); RBC 4.77 M/mm3 (4.00-5.60); RDW 15.2 % (11.9-15.9); WHITE BLOOD COUNT 10.2 K/mm3 (4.0-10.0)
[2018-04-22 09:59] LABS: CHLORIDE 101 mmol/L (98-107); POTASSIUM 4.2 mmol/L (3.5-5.1); SODIUM 137 mmol/L (136-145)
[2018-04-22 10:34] LABS: ALBUMIN 3.3 g/dl (3.4-5.0); ALK PHOS 68 U/L (45-117); ANION GAP 8 (8-16); BILIRUBIN,TOTAL 0.3 mg/dL (0.2-1.0); BLOOD UREA NITROGEN 8 mg/dL (7-18); CALCIUM 8.8 mg/dL (8.5-10.1); CO2 28 mmol/L (21-32); CREATININE 0.7 mg/dL (0.7-1.3); GLUCOSE,RANDOM 93 mg/dL (74-106); SGOT/AST 15 U/L (15-37); SGPT/ALT 22 U/L (12-78); TOT PROT 7.2 g/dl (6.4-8.2)
[2018-04-22] MEDS: PRENATAL VITAMINS W/ FOLIC ACID TABLET (FP) PO SCH (10:42)
[2018-04-22] MEDS: NICOTINE 14 MG/24 HOURS TOPICAL PATCH TD SCH (10:43)
[2018-04-22] MEDS: amLODIPine BESYLATE 5 MG TABLET (FP) PO SCH (10:43)
--- NOTE | 2018-04-22 15:20 | PN ---
BHS COWS - Scale Resting Pulse: 1= [place] 81-100 Sweatin= Chills/Flushing Restless Observation: 1= Difficult to Sit Still Pupil Size: 0= Normal to Room Light Bone or Joint Aches: 2= Severe Diffuse Aches Runny Nose/ Eye Tearin= None GI Upset > 30mins: 0= None Tremor Observation of Outstretched Hands: 2= Slight Tremor Visible Yawning Observation: 1= 1-2x During Session Anxiety or Irritability: 2=Irritable/Anxious Goose Flesh Skin: 3=Piloerection COWS Score: 13 BHS Progress Note (SOAP) Subjective: Sweating, Tremors, Body Aches, Sweating. Objective: PATIENT A & O X 3, OBSERVED AMBULATING ON UNIT. NO ACUTE DISTRESS. 04/22/18 15:19 Vital Signs Temperature 97.3 F L 04/22/18 14:44 Pulse Rate 69 04/22/18 14:44 Respiratory Rate 18 04/22/18 14:44 Blood Pressure 143/77 04/22/18 14:44 O2 Sat by Pulse Oximetry (%) Laboratory Tests 04/22/18 04/22/18 04/22/18 08:00 08:00 08:00 WBC 10.2 H RBC 4.77 Hgb 12.9 Hct 39.3 MCV 82.3 MCH 27.0 MCHC 32.8 RDW 15.2 Plt Count 254 MPV 7.1 L Sodium 137 Potassium 4.2 Chloride 101 Carbon Dioxide 28 Anion Gap 8 BUN 8 D Creatinine 0.7 D Creat Clearance w eGFR > 60 Random Glucose 93 Calcium 8.8 Total Bilirubin 0.3 AST 15 D ALT 22 Alkaline Phosphatase 68 Total Protein 7.2 Albumin 3.3 L RPR Titer Nonreactive HIV 1&2 Antibody Screen HIV P24 Antigen 04/22/18 08:00 WBC RBC Hgb Hct MCV MCH MCHC RDW Plt Count MPV Sodium Potassium Chloride Carbon Dioxide Anion Gap BUN Creatinine Creat Clearance w eGFR Random Glucose Calcium Total Bilirubin AST ALT Alkaline Phosphatase Total Protein Albumin RPR Titer HIV 1&2 Antibody Screen Negative HIV P24 Antigen Negative LABS NOTED. UA RESULTS PENDING. 04/22/18 15:22 Assessment: 04/22/18 15:22 WITHDRAWAL SYMPTOMS. Plan: CONTINUE DETOX.
[2018-04-22] MEDS: THIAMINE HCL 100 MG TABLET (FP) PO SCH (22:22)
[2018-04-23] MEDS ORDERED: METHADONE HCL 5 MG TABLET (FOR DETOX USE ONLY) PO ONE (10:00)
[2018-04-23] MEDS ORDERED: METHADONE HCL 10 MG TABLET (FOR DETOX USE ONLY) PO ONE (10:00)
[2018-04-23] MEDS: PRENATAL VITAMINS W/ FOLIC ACID TABLET (FP) PO SCH (10:49)
[2018-04-23] MEDS: NICOTINE 14 MG/24 HOURS TOPICAL PATCH TD SCH (10:50)
[2018-04-23] MEDS: diazePAM 5 MG TABLET PO PRN ×2 (10:50→22:23)
[2018-04-23] MEDS: amLODIPine BESYLATE 5 MG TABLET (FP) PO SCH (10:50)
--- NOTE | 2018-04-23 20:41 | PN ---
BHS COWS - Scale Resting Pulse: 0= [place] 80 or Below Sweatin= Chills/Flushing Restless Observation: 0= Sits Still Pupil Size: 0= Normal to Room Light Bone or Joint Aches: 4=Acute Joint/Muscle Pain Runny Nose/ Eye Tearin= None GI Upset > 30mins: 0= None Tremor Observation of Outstretched Hands: 2= Slight Tremor Visible Yawning Observation: 2= >3x During Session Anxiety or Irritability: 2=Irritable/Anxious Goose Flesh Skin: 0=Smooth Skin COWS Score: 11 S Progress Note (SOAP) Subjective: Fatigue, Body Aches, Tremors. Objective: PATIENT A & O X 3. NO ACUTE DISTRESS. 04/23/18 20:41 Vital Signs Temperature 96.6 F L 04/23/18 17:39 Pulse Rate 59 L 04/23/18 17:39 Respiratory Rate 18 04/23/18 17:39 Blood Pressure 142/85 04/23/18 17:39 O2 Sat by Pulse Oximetry (%) Laboratory Tests 04/22/18 04/22/18 04/22/18 08:00 08:00 08:00 WBC 10.2 H RBC 4.77 Hgb 12.9 Hct 39.3 MCV 82.3 MCH 27.0 MCHC 32.8 RDW 15.2 Plt Count 254 MPV 7.1 L Sodium 137 Potassium 4.2 Chloride 101 Carbon Dioxide 28 Anion Gap 8 BUN 8 D Creatinine 0.7 D Creat Clearance w eGFR > 60 Random Glucose 93 Calcium 8.8 Total Bilirubin 0.3 AST 15 D ALT 22 Alkaline Phosphatase 68 Total Protein 7.2 Albumin 3.3 L RPR Titer Nonreactive HIV 1&2 Antibody Screen HIV P24 Antigen 04/22/18 08:00 WBC RBC Hgb Hct MCV MCH MCHC RDW Plt Count MPV Sodium Potassium Chloride Carbon Dioxide Anion Gap BUN Creatinine Creat Clearance w eGFR Random Glucose Calcium Total Bilirubin AST ALT Alkaline Phosphatase Total Protein Albumin RPR Titer HIV 1&2 Antibody Screen Negative HIV P24 Antigen Negative LABS NOTED. UA RESULTS PENDING. 04/23/18 20:42 Assessment: 04/23/18 20:42 WITHDRAWAL SYMPTOMS. Plan: CONTINUE DETOX.
[2018-04-23] MEDS: MELATONIN 5 MG TABLETS PO PRN (22:23)
[2018-04-23] MEDS: THIAMINE HCL 100 MG TABLET (FP) PO SCH (22:23)
[2018-04-24] MEDS: diazePAM 5 MG TABLET PO PRN ×2 (09:09→22:17)
[2018-04-24] MEDS: amLODIPine BESYLATE 5 MG TABLET (FP) PO SCH (09:10)
[2018-04-24] MEDS: PRENATAL VITAMINS W/ FOLIC ACID TABLET (FP) PO SCH (09:10)
[2018-04-24] MEDS: NICOTINE 14 MG/24 HOURS TOPICAL PATCH TD SCH (09:10)
[2018-04-24] MEDS ORDERED: METHADONE HCL 5 MG TABLET (FOR DETOX USE ONLY) PO ONE ×2 (10:00)
--- NOTE | 2018-04-24 11:54 | PN ---
[facility] Progress Note Note: interrupted sleep, body aches, chills / sweats Vital Signs Temperature 96.2 F L 04/24/18 09:29 Pulse Rate 60 04/24/18 09:29 Respiratory Rate 18 04/24/18 09:29 Blood Pressure 160/87 04/24/18 09:29 O2 Sat by Pulse Oximetry (%) Laboratory Last Values WBC 10.2 K/mm3 (4.0-10.0) H 04/22/18 08:00 RBC 4.77 M/mm3 (4.00-5.60) 04/22/18 08:00 Hgb 12.9 GM/dL (11.7-16.9) 04/22/18 08:00 Hct 39.3 % (35.4-49) 04/22/18 08:00 MCV 82.3 fl (80-96) 04/22/18 08:00 MCH 27.0 pg (25.7-33.7) 04/22/18 08:00 MCHC 32.8 g/dl (32.0-35.9) 04/22/18 08:00 RDW 15.2 % (11.9-15.9) 04/22/18 08:00 Plt Count 254 K/MM3 (134-434) 04/22/18 08:00 MPV 7.1 fl (7.5-11.1) L 04/22/18 08:00 Sodium 137 mmol/L (136-145) 04/22/18 08:00 Potassium 4.2 mmol/L (3.5-5.1) 04/22/18 08:00 Chloride 101 mmol/L (98-107) 04/22/18 08:00 Carbon Dioxide 28 mmol/L (21-32) 04/22/18 08:00 Anion Gap 8 (8-16) 04/22/18 08:00 BUN 8 mg/dL (7-18) D 04/22/18 08:00 Creatinine 0.7 mg/dL (0.7-1.3) D 04/22/18 08:00 Creat Clearance w eGFR > 60 (>60) 04/22/18 08:00 Random Glucose 93 mg/dL (74-106) 04/22/18 08:00 Calcium 8.8 mg/dL (8.5-10.1) 04/22/18 08:00 Total Bilirubin 0.3 mg/dL (0.2-1.0) 04/22/18 08:00 AST 15 U/L (15-37) D 04/22/18 08:00 ALT 22 U/L (12-78) 04/22/18 08:00 Alkaline Phosphatase 68 U/L (45-117) 04/22/18 08:00 Total Protein 7.2 g/dl (6.4-8.2) 04/22/18 08:00 Albumin 3.3 g/dl (3.4-5.0) L 04/22/18 08:00 RPR Titer Nonreactive (NONREACTIVE) 04/22/18 08:00 HIV 1&2 Antibody Screen Negative 04/22/18 08:00 HIV P24 Antigen Negative 04/22/18 08:00 Patient aox3 in no apparent distress no adventitious breath sounds full ROM ambulating in the unit - withdrawal sx Plan: increase fluids continue detox continue to monitor
[2018-04-24] MEDS: THIAMINE HCL 100 MG TABLET (FP) PO SCH (22:17)
[2018-04-24] MEDS: MELATONIN 5 MG TABLETS PO PRN (22:18)
[2018-04-25] MEDS: NICOTINE 14 MG/24 HOURS TOPICAL PATCH TD SCH (09:09)
[2018-04-25] MEDS: amLODIPine BESYLATE 5 MG TABLET (FP) PO SCH (09:09)
[2018-04-25] MEDS: PRENATAL VITAMINS W/ FOLIC ACID TABLET (FP) PO SCH (09:10)
[2018-04-25 09:13] VITALS: BP 129/77; PULSE 68; TEMP 97
[2018-04-25] MEDS ORDERED: METHADONE HCL 5 MG TABLET (FOR DETOX USE ONLY) PO ONE (10:00)
[2018-04-25] MEDS ORDERED: METHADONE HCL 10 MG TABLET (FOR DETOX USE ONLY) PO ONE (10:00)
--- NOTE | 2018-04-25 12:46 | PN ---
[facility] Progress Note Note: Pt came up to provider to say he wants to leave. Refused to answer why or if there is any issue, states only "i have stuff to do " Denies any complaints Vital Signs Temperature 97.0 F L 04/25/18 09:12 Pulse Rate 68 04/25/18 09:12 Respiratory Rate 18 04/25/18 09:12 Blood Pressure 129/77 04/25/18 09:12 O2 Sat by Pulse Oximetry (%) Laboratory Last Values WBC 10.2 K/mm3 (4.0-10.0) H 04/22/18 08:00 RBC 4.77 M/mm3 (4.00-5.60) 04/22/18 08:00 Hgb 12.9 GM/dL (11.7-16.9) 04/22/18 08:00 Hct 39.3 % (35.4-49) 04/22/18 08:00 MCV 82.3 fl (80-96) 04/22/18 08:00 MCH 27.0 pg (25.7-33.7) 04/22/18 08:00 MCHC 32.8 g/dl (32.0-35.9) 04/22/18 08:00 RDW 15.2 % (11.9-15.9) 04/22/18 08:00 Plt Count 254 K/MM3 (134-434) 04/22/18 08:00 MPV 7.1 fl (7.5-11.1) L 04/22/18 08:00 Sodium 137 mmol/L (136-145) 04/22/18 08:00 Potassium 4.2 mmol/L (3.5-5.1) 04/22/18 08:00 Chloride 101 mmol/L (98-107) 04/22/18 08:00 Carbon Dioxide 28 mmol/L (21-32) 04/22/18 08:00 Anion Gap 8 (8-16) 04/22/18 08:00 BUN 8 mg/dL (7-18) D 04/22/18 08:00 Creatinine 0.7 mg/dL (0.7-1.3) D 04/22/18 08:00 Creat Clearance w eGFR > 60 (>60) 04/22/18 08:00 Random Glucose 93 mg/dL (74-106) 04/22/18 08:00 Calcium 8.8 mg/dL (8.5-10.1) 04/22/18 08:00 Total Bilirubin 0.3 mg/dL (0.2-1.0) 04/22/18 08:00 AST 15 U/L (15-37) D 04/22/18 08:00 ALT 22 U/L (12-78) 04/22/18 08:00 Alkaline Phosphatase 68 U/L (45-117) 04/22/18 08:00 Total Protein 7.2 g/dl (6.4-8.2) 04/22/18 08:00 Albumin 3.3 g/dl (3.4-5.0) L 04/22/18 08:00 RPR Titer Nonreactive (NONREACTIVE) 04/22/18 08:00 HIV 1&2 Antibody Screen Negative 04/22/18 08:00 HIV P24 Antigen Negative 04/22/18 08:00 Patient will sign out AMA
--- NOTE | 2018-04-25 12:49 | DS ---
[facility] Detox Discharge Summary Admission Date: 04/21/18 Discharge Date: 04/25/18 - History Additional Comments: Insisting on leaving In no acute distress States he does not need any refill of his meds Pertinent Past History: HTN - Physical Exam Results Vital Signs: Vital Signs Temperature 97.0 F L 04/25/18 09:12 Pulse Rate 68 04/25/18 09:12 Respiratory Rate 18 04/25/18 09:12 Blood Pressure 129/77 04/25/18 09:12 O2 Sat by Pulse Oximetry (%) Pertinent Admission Physical Exam Findings: withdrawal sx - Medication Discharge Medications: Ambulatory Orders Amlodipine Besylate [Norvasc -] 10 mg PO DAILY 04/21/18 - Diagnosis (1) Opioid dependence with withdrawal Status: Chronic (2) Cocaine dependence, uncomplicated Status: Acute (3) Blindness of right eye Status: Chronic (4) Cataract of both eyes Status: Chronic Qualifiers: Cataract type: juvenile Infantile/juvenile cataract type: unspecified Qualified Code(s): H26.003 - Unspecified infantile and juvenile cataract, bilateral (5) Hypertension Status: Chronic Qualifiers: Hypertension type: essential hypertension Qualified Code(s): I10 - Essential (primary) hypertension - AMA Did Patient Leave Against Medical Advice: Yes
[2018-04-26] MEDS ORDERED: METHADONE HCL 5 MG TABLET (FOR DETOX USE ONLY) PO ONE (06:00)
[2018-04-26] MEDS ORDERED: METHADONE HCL 10 MG TABLET (FOR DETOX USE ONLY) PO ONE (10:00)
[2018-04-27] MEDS ORDERED: METHADONE HCL 5 MG TABLET (FOR DETOX USE ONLY) PO ONE (06:00)
== END 2018-04-25 09:10 | disposition left against medical advice (07) | DRG 770 ==
LOC: YASAS 17:42 → Y3N 23:23
PROVIDERS: ADMIT Family Medicine Addiction Medicine; ATTEND Family Medicine Addiction Medicine
PROC: HZ2ZZZZ Detoxification Services for Substance Abuse Treatment (ICD-10-PCS; principal; 2018-04-21)
DX: F11.23 Opioid dependence with withdrawal (principal); F17.210 Nicotine dependence, cigarettes, uncomplicated; I10 Essential (primary) hypertension; H26.8 Other specified cataract; H54.40 Blindness, one eye, unspecified eye; Z86.2 Personal history of diseases of the blood and blood-forming organs and certain disorders involving the immune mechanism
CPT/HCPCS: 36415; 80053; 85027; 86593; 87389; 93005; 93010

== ENCOUNTER 2018-10-25 10:06 | Inpatient (IN) | payer OTHER ==
[2018-10-25 10:13] VITALS: BMI 23.6
--- NOTE | 2018-10-25 11:38 | HP ---
COWS - Scale Resting Pulse: 0= [place] 80 or Below Sweatin= Beads of Sweat on Face Restless Observation: 0= Sits Still Pupil Size: 0= Normal to Room Light Bone or Joint Aches: 4=Acute Joint/Muscle Pain Runny Nose/ Eye Tearin= Runny Nose/Eyes GI Upset > 30mins: 2= Nausea/Diarrhea Tremor Observation: 0= None Yawning Observation: 0= None Anxiety or Irritability: 2=Irritable/Anxious Goose Flesh Skin: 0=Smooth Skin COWS Score: 13 CIWA Score Nausea/Vomitin Muscle Tremors: None Anxiety: 3 Agitation: 0-Normal Activity Paroxysmal Sweats: 3 Orientation: 0-Oriented Tacttile Disturbances: 0-None Auditory Disturbances: 1-Very Mild Visual Disturbances: 1-Very Mild Sensitivity Headache: 2-Mild CIWA-Ar Total Score: 12 - Admission Criteria [facility]ASAS Guidelines: Admission for Medically Managed Detox: Requires at least one of the followin. CIWA greater than 12 2. Seizures within the past 24 hours 3. Delirium tremens within the past 24 hours 4. Hallucinations within the past 24 hours 5. Acute intervention needed for co occurring medical disorder 6. Acute intervention needed for co occurring psychiatric disorder 7. Severe withdrawal that cannot be handled at a lower level of care (continued vomiting, continued diarrhea, abnormal vital signs) requiring intravenous medication and/or fluids 8. Admission ROS [facility] Allergies/Adverse Reactions: Allergies Allergy/AdvReac Type Severity Reaction Status Date / Time No Known Allergies Allergy Verified 10/25/18 11:12 History of Present Illness: patient here requesting detox from etoh and opiate use , reports 2 beers/day x 1 year , heroin 6 bags via inhalation x 20 years , prior detox x 3-4 , most recently at this facility , cocaine use 1 gr/day x " a lot of years " . Methadone - yesterday 20 mg " street methadone " , denies fentanyl use , oxycodone - denies tobacco : 1 ppd cannabis : denies , then states " once in a while " utox + THC , PAT , FEN , mop , OXy , MTD rin 0.000 PMHX : htn , catract , r eye detached retina, blind R eye , r wrist frx > 20 years ago , chronic r wrist pain PSHx : eye surgeries " many " PSych : denies Meds : Norvasc 10 mg rx bottle dated 10/15/[address] [place] [address] pharmacy [phone] Exam Limitations: No Limitations - Ebola screening Have you traveled outside of the country in the last 21 days: No Have you had contact with anyone from an Ebola affected area: No Have you been sick,other than usual withdrawal symptoms: No - Review of Systems Constitutional: See HPI EENT: reports: See HPI, Other (glasses) Respiratory: reports: Shortness of Breath (reports h/o COPD , no inhalers) Cardiac: reports: No Symptoms Reported GI: reports: See HPI : reports: No Symptoms Reported Musculoskeletal: reports: Back Pain, Muscle Pain Integumentary: reports: No Symptoms Reported Neuro: reports: See HPI Endocrine: reports: No Symptoms Reported Psychiatric: reports: Orientated x3, Anxious Patient History - Patient Medical History Hx Anemia: Yes (Not on medication) Hx Asthma: No Hx Chronic Obstructive Pulmonary Disease (COPD): No Hx Cancer: No Hx Cardiac Disorders: No Hx Congestive Heart Failure: No Hx Hypertension: Yes (ON MEDS.) Hx Hypercholesterolemia: No Hx Pacemaker: No HX Cerebrovascular Accident: No Hx Seizures: No Hx Dementia: No Hx Diabetes: No Hx Gastrointestinal Disorders: No Hx Liver Disease: No Hx Genitourinary Disorders: No Hx Sexually Transmitted Disorders: No Hx Renal Disease (ESRD): No Hx Thyroid Disease: No Hx Human Immunodeficiency Virus (HIV): No (NEGATIVE HX) Hx Hepatitis C: No Hx Depression: No Hx Suicide Attempt: No Hx Bipolar Disorder: No Hx Schizophrenia: No - Patient Surgical History Past Surgical History: Yes Hx Neurologic Surgery: No Hx Cataract Extraction: Yes (BOTH EYES) Hx Cardiac Surgery: No Hx Lung Surgery: No Hx Breast Surgery: No Hx Breast Biopsy: No Hx Abdominal Surgery: No Hx Appendectomy: No Hx Cholecystectomy: No Hx Genitourinary Surgery: No Hx Orthopedic Surgery: No Other Surgical History: Sx detached retina R eye. in 12/24 Anesthesia Reaction: No - PPD History Previous Implant?: Yes Documented Results: Positive w/o proof Implanted On Prior [facility] Admission?: No Results: CXR - Smoking Cessation Smoking history: Current every day smoker Have you smoked in the past 12 months: Yes Aproximately how many cigarettes per day: 20 Hx Chewing Tobacco Use: No Initiated information on smoking cessation: No - Substances Abused Heroin Route: Inhalation Frequency: Daily Amount used: 6 BAGS Age of first use: 18 Date of Last Use: 10/25/18 Cocaine Route: Inhalation Frequency: Daily Amount used: 1/2 GRAM Age of first use: 23 Date of Last Use: 10/24/18 Alcohol Route: Oral Frequency: Daily Amount used: 1-2 BEERS 16 OZ Age of first use: 16 Date of Last Use: 10/23/18 Non-Rx Methadone Route: Oral Frequency: 1-3 times last 30 days Amount used: 20MG Age of first use: 26 Date of Last Use: 10/24/18 Family Disease History - Family Disease History Family Disease History: Diabetes: Mother (HTN-), Other: Father ( ), Mother Admission Physical Exam [facility] - Vital Signs Vital Signs: Vital Signs - 24 hr 10/25/18 10:10 Temperature 98.9 F Pulse Rate 79 Respiratory 18 Rate Blood Pressure 152/70 - Physical General Appearance: Yes: Mild Distress, Irritable, Anxious HEENTM: Yes: Normocephalic, Normal Voice, Other (r eye blind , cataracts upper and lower dentures) Respiratory: Yes: Decreased Breath Sounds, No Respiratory Distress, Rhonchi Neck: Yes: No masses,lesions,Nodules, Trachea in good position Breast: Yes: Breast Exam Deferred Cardiology: Yes: Regular Rhythm, Regular Rate, S1, S2 Abdominal: Yes: Normal Bowel Sounds, Soft Genitourinary: Yes: Within Normal Limits Back: Yes: Normal Inspection Musculoskeletal: Yes: Gait Steady, Back pain, Muscle Pain Extremities: Yes: Tremors, Other (clubbing x 10) Neurological: Yes: Motor Strength 5/5, Normal Mood/Affect Integumentary: Yes: Normal Color, Dry, Warm - Diagnostic (1) Alcohol dependence Current Visit: Yes Status: Acute Qualifiers: Substance use status: uncomplicated Qualified Code(s): F10.20 - Alcohol dependence, uncomplicated (2) Cocaine dependence, uncomplicated Current Visit: No Status: Acute (3) Hypertension Current Visit: No Status: Chronic Qualifiers: Hypertension type: essential hypertension Qualified Code(s): I10 - Essential (primary) hypertension (4) Opioid dependence with withdrawal Current Visit: No Status: Chronic S Breath Alcohol Content Breath Alcohol Content: 0 Urine Drug Screen - Results Drug Screen Negative: No Urine Drug Screen Results: THC-Marijuana, PAT-Cocaine, OPI-Opiates, MTD- Methadone, OXY-Oxycodone, FEN-Fentanyl
[2018-10-25] MEDS ORDERED: ACETAMINOPHEN 325 MG TABLET (FP) PO PRN (11:47)
[2018-10-25] MEDS ORDERED: IBUPROFEN 400 MG TABLET (FP) PO PRN (11:47)
[2018-10-25] MEDS ORDERED: MAGNESIUM CITRATE 300 ML BOTTLE PO PRN (11:47)
[2018-10-25] MEDS ORDERED: MAGNESIUM HYDROX 2400MG/30ML ORAL SUSPENSION 30 ML CUP PO PRN (11:47)
[2018-10-25] MEDS ORDERED: NICOTINE POLACRILEX 2 MG GUM BC PRN (11:47)
[2018-10-25] MEDS ORDERED: MAG HYDROX/AL HYDROX/SIMETH 30 ML UNIT-DOSE CUP PO PRN (11:47)
[2018-10-25] MEDS ORDERED: P-EPHED 60MG/TRIPROLIDI 2.5MG TABLET PO PRN (11:47)
[2018-10-25] MEDS ORDERED: ALBUTEROL SO4 0.083% IH SOL 2.5 MG/3 ML VIAL.NEB. NEB PRN (12:01)
[2018-10-25] MEDS ORDERED: METHADONE HCL 10 MG TABLET (FOR DETOX USE ONLY) PO ONE ×2 (14:00→23:00)
[2018-10-25] MEDS: diazePAM 5 MG TABLET PO PRN ×2 (14:30→22:16)
[2018-10-25] MEDS: MENTHOL/PHENOL 1 EACH UD MM PRN ×2 (15:28→22:18)
[2018-10-25] MEDS: THIAMINE HCL 100 MG TABLET (FP) PO SCH (22:13)
[2018-10-25] MEDS: MELATONIN 5 MG TABLETS PO PRN (22:14)
[2018-10-26] MEDS: MENTHOL/PHENOL 1 EACH UD MM PRN ×4 (06:12→22:18)
[2018-10-26] MEDS: diazePAM 5 MG TABLET PO PRN ×4 (06:13→22:17)
[2018-10-26] MEDS: amLODIPine BESYLATE 10 MG TABLET (FP) PO SCH (09:42)
[2018-10-26] MEDS: PRENATAL VITAMINS W/ FOLIC ACID TABLET (FP) PO SCH (09:42)
[2018-10-26] MEDS: guaiFENesin/D-METHORPHAN HB 10 ML UNIT-DOSE CUPS PO PRN ×2 (09:44→22:17)
[2018-10-26] MEDS ORDERED: METHADONE HCL 10 MG TABLET (FOR DETOX USE ONLY) PO ONE (10:00)
[2018-10-26 10:03] LABS: HEMATOCRIT 38.6 % (35.4-49); HEMOGLOBIN 12.4 GM/dL (11.7-16.9); MCH 26.8 pg (25.7-33.7); MCHC 32.2 g/dl (32.0-35.9); MEAN PLT VOLUME 7.7 fl (7.5-11.1); PLATELET COUNT 255 K/MM3 (134-434); RBC 4.65 M/mm3 (4.00-5.60); RDW 15.3 % (11.9-15.9); WHITE BLOOD COUNT 10.6 K/mm3 (4.0-10.0)
[2018-10-26 11:17] LABS: ALBUMIN 3.8 g/dl (3.4-5.0); ALK PHOS 89 U/L (45-117); ANION GAP 8 MMOL/L (8-16); BILIRUBIN,TOTAL 0.4 mg/dL (0.2-1); BLOOD UREA NITROGEN 20 mg/dL (7-18); CALCIUM 8.8 mg/dL (8.5-10.1); CHLORIDE 103 mmol/L (98-107); CO2 26 mmol/L (21-32); CREATININE 1.2 mg/dL (0.55-1.3); GLUCOSE,RANDOM 89 mg/dL (74-106); POTASSIUM 4.3 mmol/L (3.5-5.1); SGOT/AST 22 U/L (15-37); SGPT/ALT 34 U/L (13-61); SODIUM 138 mmol/L (136-145); TOT PROT 7.9 g/dl (6.4-8.2)
--- NOTE | 2018-10-26 11:58 | PN ---
S CIWA - CIWA Score Nausea/Vomitin Muscle Tremors: 3 Anxiety: 2 Agitation: 2 Paroxysmal Sweats: No Perspiration Orientation: 0-Oriented Tacttile Disturbances: 0-None Auditory Disturbances: 0-None Visual Disturbances: 0-None Headache: 0-None Present CIWA-Ar Total Score: 9 S COWS - Scale Resting Pulse: 0= [place] 80 or Below Sweatin= No chills or Flushing Restless Observation: 1= Difficult to Sit Still Pupil Size: 2= Moderately Dilated Bone or Joint Aches: 2= Severe Diffuse Aches Runny Nose/ Eye Tearin= None GI Upset > 30mins: 2= Nausea/Diarrhea Tremor Observation of Outstretched Hands: 2= Slight Tremor Visible Yawning Observation: 0= None Anxiety or Irritability: 2=Irritable/Anxious Goose Flesh Skin: 0=Smooth Skin COWS Score: 11 [facility] Progress Note (SOAP) Subjective: PATIENT C/O NAUSEA/DIARRHEA, SLEEP DISTURBANCE, SHAKES AND RESTLESSNESS. Objective: 10/26/18 11:56 Vital Signs Temperature 98.7 F 10/26/18 09:10 Pulse Rate 65 10/26/18 09:10 Respiratory Rate 18 10/26/18 09:10 Blood Pressure 125/66 10/26/18 09:10 O2 Sat by Pulse Oximetry (%) Laboratory Tests 10/25/18 10/26/18 10/26/18 12:10 05:45 05:45 WBC 10.6 H RBC 4.65 Hgb 12.4 Hct 38.6 MCV 83.0 MCH 26.8 MCHC 32.2 RDW 15.3 Plt Count 255 MPV 7.7 Sodium 138 Potassium 4.3 Chloride 103 Carbon Dioxide 26 Anion Gap 8 BUN 20 H Creatinine 1.2 Creat Clearance w eGFR > 60 Random Glucose 89 Calcium 8.8 Total Bilirubin 0.4 AST 22 ALT 34 Alkaline Phosphatase 89 Total Protein 7.9 Albumin 3.8 RPR Titer HIV 1&2 Antibody Screen Negative HIV P24 Antigen Negative 10/26/18 05:45 WBC RBC Hgb Hct MCV MCH MCHC RDW Plt Count MPV Sodium Potassium Chloride Carbon Dioxide Anion Gap BUN Creatinine Creat Clearance w eGFR Random Glucose Calcium Total Bilirubin AST ALT Alkaline Phosphatase Total Protein Albumin RPR Titer Nonreactive HIV 1&2 Antibody Screen HIV P24 Antigen PE: ALERT AND ORIENTED X 3 SKIN WARM AND DRY EXT FULL ROM, + TREMORS AMB AD DAISHA +ANXIETY/RESTLESSNESS Assessment: 10/26/18 11:57 WITHDRAWAL SX Plan: CONTINUE DETOX ENCOURAGE ORAL FLUIDS CONTINUE SUPPORTIVE MEASURES AND MONITOR CLINICALLY
[2018-10-26] MEDS: THIAMINE HCL 100 MG TABLET (FP) PO SCH (22:17)
[2018-10-26] MEDS: MELATONIN 5 MG TABLETS PO PRN (22:18)
[2018-10-27] MEDS: diazePAM 5 MG TABLET PO PRN ×2 (09:48→22:27)
[2018-10-27] MEDS: PRENATAL VITAMINS W/ FOLIC ACID TABLET (FP) PO SCH (09:48)
[2018-10-27] MEDS: amLODIPine BESYLATE 10 MG TABLET (FP) PO SCH (09:48)
[2018-10-27] MEDS ORDERED: METHADONE HCL 5 MG TABLET (FOR DETOX USE ONLY) PO ONE (10:00)
--- NOTE | 2018-10-27 13:59 | PN ---
S CIWA - CIWA Score Nausea/Vomitin-Mild Nausea/No Vomiting Muscle Tremors: 3 Anxiety: 2 Agitation: 2 Paroxysmal Sweats: 3 Orientation: 0-Oriented Tacttile Disturbances: 0-None Auditory Disturbances: 0-None Visual Disturbances: 0-None Headache: 0-None Present CIWA-Ar Total Score: 11 [facility] COWS - Scale Resting Pulse: 0= [place] 80 or Below Sweatin=Flushed/Facial Moisture Restless Observation: 1= Difficult to Sit Still Pupil Size: 0= Normal to Room Light Bone or Joint Aches: 2= Severe Diffuse Aches Runny Nose/ Eye Tearin= None GI Upset > 30mins: 2= Nausea/Diarrhea Tremor Observation of Outstretched Hands: 2= Slight Tremor Visible Yawning Observation: 0= None Anxiety or Irritability: 1=Feels Anxious/Irritable Goose Flesh Skin: 3=Piloerection COWS Score: 13 [facility] Progress Note (SOAP) Subjective: PATIENT C/O BODY ACHES, SWEATING, NAUSEA, SHAKES AND ANXIETY. Objective: 10/27/18 13:57 Vital Signs Temperature 96.0 F L 10/27/18 13:46 Pulse Rate 56 L 10/27/18 13:46 Respiratory Rate 20 10/27/18 13:46 Blood Pressure 140/82 10/27/18 13:46 O2 Sat by Pulse Oximetry (%) Laboratory Tests 10/25/18 10/26/18 10/26/18 12:10 05:45 05:45 WBC 10.6 H RBC 4.65 Hgb 12.4 Hct 38.6 MCV 83.0 MCH 26.8 MCHC 32.2 RDW 15.3 Plt Count 255 MPV 7.7 Sodium 138 Potassium 4.3 Chloride 103 Carbon Dioxide 26 Anion Gap 8 BUN 20 H Creatinine 1.2 Creat Clearance w eGFR > 60 Random Glucose 89 Calcium 8.8 Total Bilirubin 0.4 AST 22 ALT 34 Alkaline Phosphatase 89 Total Protein 7.9 Albumin 3.8 RPR Titer HIV 1&2 Antibody Screen Negative HIV P24 Antigen Negative 10/26/18 05:45 WBC RBC Hgb Hct MCV MCH MCHC RDW Plt Count MPV Sodium Potassium Chloride Carbon Dioxide Anion Gap BUN Creatinine Creat Clearance w eGFR Random Glucose Calcium Total Bilirubin AST ALT Alkaline Phosphatase Total Protein Albumin RPR Titer Nonreactive HIV 1&2 Antibody Screen HIV P24 Antigen PE: SKIN + GOOSEFLESH ALERT AND ORIENTED X 3 EXT FULL ROM, +TREMORS AMB AD DAISHA ANXIOUS Assessment: 10/27/18 13:58 WITHDRAWAL SX Plan: DETOX ORDERED CONTINUE TO MONITOR APAP AND MOTRIN PRN FOR BODY ACHES.
[2018-10-27] MEDS: THIAMINE HCL 100 MG TABLET (FP) PO SCH (22:27)
[2018-10-28] MEDS: diazePAM 5 MG TABLET PO PRN (09:06)
[2018-10-28] MEDS: PRENATAL VITAMINS W/ FOLIC ACID TABLET (FP) PO SCH (09:06)
[2018-10-28] MEDS ORDERED: METHADONE HCL 10 MG TABLET (FOR DETOX USE ONLY) PO ONE (10:00)
[2018-10-28] MEDS: amLODIPine BESYLATE 10 MG TABLET (FP) PO SCH (10:24)
--- NOTE | 2018-10-28 11:08 | PN ---
[facility] Progress Note Note: PATIENT C/O INSOMNIA, BODY ACHES AND SWEATING. Vital Signs Temperature 96.8 F L 10/28/18 09:47 Pulse Rate 50 L 10/28/18 09:47 Respiratory Rate 17 10/28/18 09:47 Blood Pressure 120/61 10/28/18 09:47 O2 Sat by Pulse Oximetry (%) Laboratory Tests 10/25/18 10/26/18 10/26/18 12:10 05:45 05:45 WBC 10.6 H RBC 4.65 Hgb 12.4 Hct 38.6 MCV 83.0 MCH 26.8 MCHC 32.2 RDW 15.3 Plt Count 255 MPV 7.7 Sodium 138 Potassium 4.3 Chloride 103 Carbon Dioxide 26 Anion Gap 8 BUN 20 H Creatinine 1.2 Creat Clearance w eGFR > 60 Random Glucose 89 Calcium 8.8 Total Bilirubin 0.4 AST 22 ALT 34 Alkaline Phosphatase 89 Total Protein 7.9 Albumin 3.8 RPR Titer HIV 1&2 Antibody Screen Negative HIV P24 Antigen Negative 10/26/18 05:45 WBC RBC Hgb Hct MCV MCH MCHC RDW Plt Count MPV Sodium Potassium Chloride Carbon Dioxide Anion Gap BUN Creatinine Creat Clearance w eGFR Random Glucose Calcium Total Bilirubin AST ALT Alkaline Phosphatase Total Protein Albumin RPR Titer Nonreactive HIV 1&2 Antibody Screen HIV P24 Antigen PE: ALERT AND ORIENTED X3 SKIN WARM AND MOIST EXT FULL ROM, NO EDEMA AMB AD DAISHA +RESTLESSNESS A/P: WITHDRAWAL SX CONTINUE DETOX ENCOURAGE ORAL FLUIDS FLEXERIL ORDERED PRN FOR BODY ACHES CONTINUE TO MONITOR CLINICALLY
[2018-10-28] MEDS: CYCLOBENZAPRINE HCL 10 MG TABLET (FP) PO SCH ×2 (13:49→21:57)
[2018-10-28] MEDS: MELATONIN 5 MG TABLETS PO PRN (21:57)
[2018-10-28] MEDS: THIAMINE HCL 100 MG TABLET (FP) PO SCH (21:57)
[2018-10-29] MEDS: CYCLOBENZAPRINE HCL 10 MG TABLET (FP) PO SCH (05:47)
[2018-10-29] MEDS ORDERED: METHADONE HCL 5 MG TABLET (FOR DETOX USE ONLY) PO ONE (06:00)
[2018-10-29 06:28] VITALS: BP 138/72; PULSE 53; TEMP 97
--- NOTE | 2018-10-29 09:08 | PN ---
S Progress Note (SOAP) Subjective: alert,no complaint Objective: 10/29/18 09:06 Vital Signs Temperature 97 F L 10/29/18 06:27 Pulse Rate 53 L 10/29/18 06:27 Respiratory Rate 18 10/29/18 06:27 Blood Pressure 138/72 10/29/18 06:27 O2 Sat by Pulse Oximetry (%) Assessment: 10/29/18 09:07 detox completed,no withdrawal symptom Plan: discharge today,follow up with after care program as arrangement
--- NOTE | 2018-10-29 09:13 | DS ---
[facility] Detox Discharge Summary Admission Date: 10/25/18 Discharge Date: 10/29/18 - History Present History: Alcohol Dependence, Cocaine Dependence, Opioid Dependence Additional Comments: follow up with after care program as arrangement - Physical Exam Results Vital Signs: Vital Signs Temperature 97 F L 10/29/18 06:27 Pulse Rate 53 L 10/29/18 06:27 Respiratory Rate 18 10/29/18 06:27 Blood Pressure 138/72 10/29/18 06:27 O2 Sat by Pulse Oximetry (%) Pertinent Admission Physical Exam Findings: Vital Signs Temperature 97 F L 10/29/18 06:27 Pulse Rate 53 L 10/29/18 06:27 Respiratory Rate 18 10/29/18 06:27 Blood Pressure 138/72 10/29/18 06:27 O2 Sat by Pulse Oximetry (%) Laboratory Last Values WBC 10.6 K/mm3 (4.0-10.0) H 10/26/18 05:45 RBC 4.65 M/mm3 (4.00-5.60) 10/26/18 05:45 Hgb 12.4 GM/dL (11.7-16.9) 10/26/18 05:45 Hct 38.6 % (35.4-49) 10/26/18 05:45 MCV 83.0 fl (80-96) 10/26/18 05:45 MCH 26.8 pg (25.7-33.7) 10/26/18 05:45 MCHC 32.2 g/dl (32.0-35.9) 10/26/18 05:45 RDW 15.3 % (11.9-15.9) 10/26/18 05:45 Plt Count 255 K/MM3 (134-434) 10/26/18 05:45 MPV 7.7 fl (7.5-11.1) 10/26/18 05:45 Sodium 138 mmol/L (136-145) 10/26/18 05:45 Potassium 4.3 mmol/L (3.5-5.1) 10/26/18 05:45 Chloride 103 mmol/L (98-107) 10/26/18 05:45 Carbon Dioxide 26 mmol/L (21-32) 10/26/18 05:45 Anion Gap 8 MMOL/L (8-16) 10/26/18 05:45 BUN 20 mg/dL (7-18) H 10/26/18 05:45 Creatinine 1.2 mg/dL (0.55-1.3) 10/26/18 05:45 Creat Clearance w eGFR > 60 (>60) 10/26/18 05:45 Random Glucose 89 mg/dL (74-106) 10/26/18 05:45 Calcium 8.8 mg/dL (8.5-10.1) 10/26/18 05:45 Total Bilirubin 0.4 mg/dL (0.2-1) 10/26/18 05:45 AST 22 U/L (15-37) 10/26/18 05:45 ALT 34 U/L (13-61) 10/26/18 05:45 Alkaline Phosphatase 89 U/L (45-117) 10/26/18 05:45 Total Protein 7.9 g/dl (6.4-8.2) 10/26/18 05:45 Albumin 3.8 g/dl (3.4-5.0) 10/26/18 05:45 RPR Titer Nonreactive (NONREACTIVE) 10/26/18 05:45 HIV 1&2 Antibody Screen Negative 10/25/18 12:10 HIV P24 Antigen Negative 10/25/18 12:10 - Treatment Hospital Course: Detox Protocol Followed, Detoxed Safely, Responded well, Discharged Condition Good Patient has Accepted a Rehab Referral to: declined - Medication Discharge Medications: Ambulatory Orders Amlodipine Besylate [Norvasc -] 10 mg PO DAILY 04/21/18 - Diagnosis (1) Opioid dependence with withdrawal Current Visit: Yes Status: Acute (2) Alcohol dependence Current Visit: Yes Status: Acute Qualifiers: Substance use status: uncomplicated Qualified Code(s): F10.20 - Alcohol dependence, uncomplicated (3) Cocaine dependence, uncomplicated Current Visit: No Status: Acute (4) Blindness of right eye Current Visit: No Status: Chronic (5) Cataract of both eyes Current Visit: No Status: Chronic Qualifiers: Cataract type: juvenile Infantile/juvenile cataract type: unspecified Qualified Code(s): H26.003 - Unspecified infantile and juvenile cataract, bilateral (6) History of anemia Current Visit: No Status: Chronic (7) Hypertension Current Visit: No Status: Chronic Qualifiers: Hypertension type: essential hypertension Qualified Code(s): I10 - Essential (primary) hypertension - AMA Did Patient Leave Against Medical Advice: No
== END 2018-10-29 08:30 | disposition home or self-care (01) | DRG 773 ==
LOC: YASAS 10:06 → Y3N 13:04
PROC: HZ2ZZZZ Detoxification Services for Substance Abuse Treatment (ICD-10-PCS; principal; 2018-10-25)
DX: F11.23 Opioid dependence with withdrawal (principal); F10.230 Alcohol dependence with withdrawal, uncomplicated; F14.20 Cocaine dependence, uncomplicated; F17.210 Nicotine dependence, cigarettes, uncomplicated; I10 Essential (primary) hypertension; H54.40 Blindness, one eye, unspecified eye; H26 Other cataract
CPT/HCPCS: 36415; 71046-TC-FY; 80053; 85027; 86593; 87389

== ENCOUNTER 2019-09-09 11:44 | Inpatient (IN) | payer OTHER ==
[2019-09-09 12:42] VITALS: BMI 25.7
--- NOTE | 2019-09-09 13:41 | HP ---
"COWS - Scale Resting Pulse: 0= [place] 80 or Below Sweatin= Chills/Flushing Restless Observation: 1= Difficult to Sit Still Pupil Size: 0= Normal to Room Light Bone or Joint Aches: 2= Severe Diffuse Aches Runny Nose/ Eye Tearin= Runny Nose/Eyes GI Upset > 30mins: 2= Nausea/Diarrhea Tremor Observation: 2= Slight Tremor Visible Yawning Observation: 1= 1-2x During Session Anxiety or Irritability: 1=Feels Anxious/Irritable Goose Flesh Skin: 0=Smooth Skin COWS Score: 12 Admitting History and Physical - Admission History Source: Patient - Social History Usual Living Arrangement: Yes: Alone, Other (has own apartment - unemployed) ADL: Support Services Admission ROS S - HPI Chief Complaint: It's time, I can't run the street anymore, I could Allergies/Adverse Reactions: Allergies Allergy/AdvReac Type Severity Reaction Status Date / Time No Known Allergies Allergy Verified 09/09/19 12:35 History of Present Illness: 59 yo gentleman here for detox from opiates. Last time here was in 2018 - [facility] he did well for a while then relapsed. [facility] he was on MMTP 100mg about 10 year ago for about 18 months but weaned himself off it because he did not want to be 'hooked' on it. Discussed with him importance of MAT for snf success. [facility] never on suboxone program though did try street suboxone. Denies overdose, denies seizures. He is disabled due to very low vision, has own apartment. [facility] Search Terms: aranza watson, 1960 Search Date: 09/09/2019 01:36:09 PM The Drug Utilization Report below displays all of the controlled substance prescriptions, if any, that your patient has filled in the last twelve months. The information displayed on this report is compiled from pharmacy submissions to the Department, and accurately reflects the information as submitted by the pharmacies. This report was requested by: Brynn Wakefield | Reference #: [id number] There are no results for the search terms that you entered. Exam Limitations: Clinical Condition - Ebola screening Have you traveled outside of the country in the last 21 days: No (N) Have you had contact with anyone from an Ebola affected area: No Do you have a fever: No - Review of Systems Constitutional: Chills, Loss of Appetite, Night Sweats, Changes in sleep, Weakness EENT: reports: Cataracts, Blurred Vision, Nose Congestion Respiratory: reports: No Symptoms reported Cardiac: reports: No Symptoms Reported GI: reports: Nausea, Poor Appetite, Indigestion, Abdominal cramping : reports: Other (nocturia) Musculoskeletal: reports: Back Pain, Muscle Pain Neuro: reports: Headache, Tremors Endocrine: reports: No Symptoms Reported Hematology: reports: No Symptoms Reported Psychiatric: reports: Judgement Intact, Mood/Affect Appropiate, Anxious Other Systems: Reviewed and Negative Patient History - Patient Medical History Hx Anemia: No Hx Asthma: No Hx Chronic Obstructive Pulmonary Disease (COPD): No Hx Cancer: No Hx Cardiac Disorders: No Hx Congestive Heart Failure: No Hx Hypertension: Yes (no meds) Hx Hypercholesterolemia: No Hx Pacemaker: No HX Cerebrovascular Accident: No Hx Seizures: No Hx Dementia: No Hx Diabetes: No Hx Gastrointestinal Disorders: No Hx Liver Disease: No Hx Genitourinary Disorders: No Hx Sexually Transmitted Disorders: No Hx Renal Disease (ESRD): No Hx Thyroid Disease: No Hx Human Immunodeficiency Virus (HIV): No Hx Hepatitis C: No Hx Depression: No Hx Suicide Attempt: No Hx Bipolar Disorder: No Hx Schizophrenia: No Other Medical History: RIGHT EYE BLIND; LEFT EYE LOW VISION - CATARACT, DETACHED RETINA - Patient Surgical History Past Surgical History: Yes Hx Neurologic Surgery: No Hx Cataract Extraction: Yes (BOTH EYES) Hx Cardiac Surgery: No Hx Lung Surgery: No Hx Breast Surgery: No Hx Breast Biopsy: No Hx Abdominal Surgery: No Hx Appendectomy: No Hx Cholecystectomy: No Hx Genitourinary Surgery: No Hx Orthopedic Surgery: No Other Surgical History: Sx detached retina R eye. in 12/24 Anesthesia Reaction: No - PPD History Previous Implant?: Yes Documented Results: Positive w/o proof Results: CXR - Reproductive History Patient is a Female of Child Bearing Age (11 -55 yrs old): No - Smoking Cessation Smoking history: Current every day smoker Have you smoked in the past 12 months: Yes Aproximately how many cigarettes per day: 20 Hx Chewing Tobacco Use: No Initiated information on smoking cessation: Yes 'Breaking Loose' booklet given: 09/09/19 (give on floor) - Substance & Tx. History Hx Alcohol Use: No Hx Substance Use: Yes Substance Use Type: Opiates Hx Substance Use Treatment: Yes (detox, rehab, mmtp ) - Substances abused Heroin Substance route: Inhalation Frequency: Daily Amount used: 15 bags/day Age of first use: 25 Date of last use: 09/09/19 Admission Physical Exam [facility] - Vital Signs Vital Signs: Vital Signs - 24 hr 09/09/19 12:22 Temperature 96.8 F L Pulse Rate 69 Respiratory 16 Rate Blood Pressure 164/89 - Physical General Appearance: Yes: Nourished, Appropriately Dressed, Moderate Distress, Tremorous, Anxious HEENTM: Yes: Hearing grossly Normal, Normocephalic, Normal Voice, Pharynx Normal , Other (upper and lower dentures; right eye clouded cornea) Respiratory: Yes: Normal Breath Sounds, No Respiratory Distress Neck: Yes: No masses,lesions,Nodules, Supple Breast: Yes: Breast Exam Deferred Cardiology: Yes: Regular Rhythm, Regular Rate Abdominal: Yes: Soft Genitourinary: Yes: Nocturia Back: Yes: Normal Inspection Musculoskeletal: Yes: full range of Motion, Gait Steady, Muscle Pain Extremities: Yes: Normal Inspection, Normal Range of Motion, Non-Tender, Tremors Neurological: Yes: Fully Oriented, Alert, Normal Mood/Affect, Normal Response Integumentary: Yes: Normal Color, Warm Lymphatic: Yes: Within Normal Limits - Diagnostic (1) Opioid dependence with withdrawal Current Visit: Yes Status: Chronic (2) Blindness of right eye Current Visit: Yes Status: Chronic Qualifiers: Left eye visual impairment category: left - unspecified low vision Qualified Code(s): H54.40 - Blindness, one eye, unspecified eye; H54.50 - Low vision, one eye, unspecified eye (3) Cataract of both eyes Current Visit: Yes Status: Chronic Qualifiers: Cataract type: juvenile Infantile/juvenile cataract type: unspecified Qualified Code(s): H26.003 - Unspecified infantile and juvenile cataract, bilateral Comment: PT STATES HAD CATARACT AT 16 YRS OLD. (4) Hypertension Current Visit: Yes Status: Chronic Qualifiers: Hypertension type: essential hypertension Qualified Code(s): I10 - Essential (primary) hypertension (5) Nicotine dependence Current Visit: Yes Status: Acute Qualifiers: Nicotine product type: cigarettes Substance use status: uncomplicated Qualified Code(s): F17.210 - Nicotine dependence, cigarettes, uncomplicated Cleared for Admission [facility] - Detox or Rehab [facility] Level of Care: Medically Managed Detox Regimen/Protocol: Methadone Breathalyzer - Breathalyzer Breathalyzer: 0 Urine Drug Screen - Test Device Lot number: [id number] Expiration date: 05/07/21 - Control Is test valid?: Yes - Results Drug screen NEGATIVE: No Urine drug screen results: FEN-Fentanyl, MOP-Opiates, OXY-Oxycodone Inpatient Rehab Admission - Rehab Decision to Admit Inpatient rehab admission?: No"
[2019-09-09] MEDS ORDERED: BISMUTH SUBSALICYLATE 524 MG/30 ML UD PO PRN (13:49)
[2019-09-09] MEDS ORDERED: MAGNESIUM HYDROX 2400MG/30ML ORAL SUSPENSION 30 ML CUP PO PRN (13:49)
[2019-09-09] MEDS ORDERED: MAG HYDROX/AL HYDROX/SIMETH 30 ML UNIT-DOSE CUP PO PRN (13:49)
[2019-09-09] MEDS ORDERED: MAGNESIUM CITRATE 300 ML BOTTLE PO PRN (13:49)
[2019-09-09] MEDS ORDERED: MENTHOL/PHENOL 1 EACH UD MM PRN (13:49)
[2019-09-09] MEDS ORDERED: NICOTINE POLACRILEX 4 MG GUM BUC PRN (13:49)
[2019-09-09] MEDS ORDERED: ACETAMINOPHEN 325 MG TABLET (FP) PO PRN ×2 (13:49)
[2019-09-09] MEDS ORDERED: METHADONE HCL 10 MG TABLET (FOR DETOX USE ONLY) PO ONE (13:49)
[2019-09-09] MEDS ORDERED: cloNIDine HCL 0.1 MG TABLET PO PRN (13:49)
[2019-09-09] MEDS ORDERED: IBUPROFEN 400 MG TABLET (FP) PO PRN (13:49)
[2019-09-09] MEDS: amLODIPine BESYLATE 5 MG TABLET (FP) PO SCH (14:23)
[2019-09-09] MEDS: THIAMINE HCL 100 MG TABLET (FP) PO SCH (22:25)
[2019-09-09] MEDS: MELATONIN 5 MG TABLETS PO PRN (22:26)
[2019-09-09] MEDS: METHOCARBAMOL 500 MG TABLET PO PRN (22:26)
[2019-09-10] MEDS ORDERED: METHADONE HCL 10 MG TABLET (FOR DETOX USE ONLY) ONE (08:39)
[2019-09-10] MEDS ORDERED: METHADONE HCL 5 MG TABLET (FOR DETOX USE ONLY) ONE (08:39)
[2019-09-10 09:21] LABS: HEMATOCRIT 36.8 % (35.4-49); HEMOGLOBIN 12.5 GM/dL (11.7-16.9); MCH 27.9 pg (25.7-33.7); MCHC 33.8 g/dl (32.0-35.9); MEAN CELL VOLUME 82.6 fl (80-96); MEAN PLT VOLUME 7.2 fl (7.5-11.1); PLATELET COUNT 254 K/MM3 (134-434); RBC 4.46 M/mm3 (4.00-5.60); RDW 15.3 % (11.9-15.9)
[2019-09-10 09:43] LABS: ALBUMIN 3.3 g/dl (3.4-5.0); BILIRUBIN,TOTAL 0.4 mg/dL (0.2-1); BLOOD UREA NITROGEN 11.2 mg/dL (7-18); CALCIUM 8.5 mg/dL (8.5-10.1); CREATININE 0.7 mg/dL (0.55-1.3); POTASSIUM 4.2 mmol/L (3.5-5.1)
[2019-09-10] MEDS ORDERED: METHADONE (DETOX) 20 MG, METHADONE (DETOX) 5 MG PO ONE (10:00)
[2019-09-10] MEDS: amLODIPine BESYLATE 5 MG TABLET (FP) PO SCH (10:24)
[2019-09-10] MEDS: PRENATAL VITAMINS W/ FOLIC ACID TABLET (FP) PO SCH (10:24)
[2019-09-10] MEDS: METHOCARBAMOL 500 MG TABLET PO PRN ×2 (10:26→22:13)
--- NOTE | 2019-09-10 14:08 | PN ---
[facility] COWS - Scale Resting Pulse: 0= [place] 80 or Below Sweatin= Chills/Flushing Restless Observation: 0= Sits Still Pupil Size: 1= Pupils >than Normal Bone or Joint Aches: 1= Mild Discomfort Runny Nose/ Eye Tearin= None GI Upset > 30mins: 1= Stomach Cramp Tremor Observation of Outstretched Hands: 2= Slight Tremor Visible Yawning Observation: 0= None Anxiety or Irritability: 2=Irritable/Anxious Goose Flesh Skin: 3=Piloerection COWS Score: 11 [facility] Progress Note (SOAP) Subjective: 59 years old male admitted on 09/09/19 for opiate withdrawal sx management treated with methadone detox regimen patient tolerated well body ache anxiety trouble sleep at night Objective: 09/10/19 14:46 Vital Signs Temperature 97.8 F 09/10/19 13:36 Pulse Rate 55 L 09/10/19 13:36 Respiratory Rate 18 09/10/19 13:36 Blood Pressure 148/81 09/10/19 13:36 O2 Sat by Pulse Oximetry (%) Laboratory Last Values WBC 9.0 K/mm3 (4.0-10.0) 09/10/19 07:50 RBC 4.46 M/mm3 (4.00-5.60) 09/10/19 07:50 Hgb 12.5 GM/dL (11.7-16.9) 09/10/19 07:50 Hct 36.8 % (35.4-49) 09/10/19 07:50 MCV 82.6 fl (80-96) 09/10/19 07:50 MCH 27.9 pg (25.7-33.7) 09/10/19 07:50 MCHC 33.8 g/dl (32.0-35.9) 09/10/19 07:50 RDW 15.3 % (11.9-15.9) 09/10/19 07:50 Plt Count 254 K/MM3 (134-434) 09/10/19 07:50 MPV 7.2 fl (7.5-11.1) L 09/10/19 07:50 Sodium 138 mmol/L (136-145) 09/10/19 07:50 Potassium 4.2 mmol/L (3.5-5.1) 09/10/19 07:50 Chloride 104 mmol/L (98-107) 09/10/19 07:50 Carbon Dioxide 29 mmol/L (21-32) 09/10/19 07:50 Anion Gap 5 MMOL/L (8-16) L 09/10/19 07:50 BUN 11.2 mg/dL (7-18) 09/10/19 07:50 Creatinine 0.7 mg/dL (0.55-1.3) 09/10/19 07:50 Est GFR (CKD-EPI)AfAm 118.05 09/10/19 07:50 Est GFR (CKD-EPI)NonAf 101.85 09/10/19 07:50 Random Glucose 101 mg/dL (74-106) 09/10/19 07:50 Calcium 8.5 mg/dL (8.5-10.1) 09/10/19 07:50 Total Bilirubin 0.4 mg/dL (0.2-1) 09/10/19 07:50 AST 15 U/L (15-37) 09/10/19 07:50 ALT 23 U/L (13-61) 09/10/19 07:50 Alkaline Phosphatase 73 U/L (45-117) 09/10/19 07:50 Total Protein 7.0 g/dl (6.4-8.2) 09/10/19 07:50 Albumin 3.3 g/dl (3.4-5.0) L 09/10/19 07:50 RPR Titer Nonreactive (NONREACTIVE) 09/10/19 07:50 HIV 1&2 Antibody Screen Negative 09/10/19 07:50 HIV P24 Antigen Negative 09/10/19 07:50 lab noted Assessment: 09/10/19 14:46 opiate withdrawal sx Plan: continue methadone detox regimen
[2019-09-10] MEDS ORDERED: amLODIPine BESYLATE 5 MG TABLET (FP) PO ONE (14:09)
[2019-09-10] MEDS ORDERED: amLODIPine BESYLATE 5 MG TABLET (FP) PO SCH (14:09)
[2019-09-10] MEDS ORDERED: cloNIDine HCL 0.1 MG TABLET PO PRN (14:11)
[2019-09-10] MEDS: MELATONIN 5 MG TABLETS PO PRN (22:12)
[2019-09-10] MEDS: THIAMINE HCL 100 MG TABLET (FP) PO SCH (22:12)
[2019-09-11] MEDS ORDERED: METHADONE HCL 10 MG TABLET (FOR DETOX USE ONLY) PO ONE (10:00)
[2019-09-11] MEDS: PRENATAL VITAMINS W/ FOLIC ACID TABLET (FP) PO SCH (10:15)
[2019-09-11] MEDS: amLODIPine BESYLATE 5 MG TABLET (FP) PO SCH (10:15)
[2019-09-11] MEDS: METHOCARBAMOL 500 MG TABLET PO PRN (10:16)
--- NOTE | 2019-09-11 11:17 | PN ---
[facility] COWS - Scale Resting Pulse: 0= [place] 80 or Below Sweatin= Chills/Flushing Restless Observation: 0= Sits Still Pupil Size: 1= Pupils >than Normal Bone or Joint Aches: 1= Mild Discomfort Runny Nose/ Eye Tearin= Nasal Congestion GI Upset > 30mins: 1= Stomach Cramp Tremor Observation of Outstretched Hands: 1= Tremor [place], Not Seen Yawning Observation: 1= 1-2x During Session Anxiety or Irritability: 1=Feels Anxious/Irritable Goose Flesh Skin: 0=Smooth Skin COWS Score: 8 BHS Progress Note (SOAP) Subjective: 59 years old male admitted on 09/09/19 for opiate withdrawal sx management treated with methadone detox regimen patient tolerated well discuss medication assisted treatment program [employer] man narcan from pharmacy Objective: 09/11/19 11:23 Vital Signs Temperature 97.5 F L 09/11/19 09:19 Pulse Rate 50 L 09/11/19 09:19 Respiratory Rate 18 09/11/19 09:19 Blood Pressure 144/73 09/11/19 09:19 O2 Sat by Pulse Oximetry (%) Laboratory Last Values WBC 9.0 K/mm3 (4.0-10.0) 09/10/19 07:50 RBC 4.46 M/mm3 (4.00-5.60) 09/10/19 07:50 Hgb 12.5 GM/dL (11.7-16.9) 09/10/19 07:50 Hct 36.8 % (35.4-49) 09/10/19 07:50 MCV 82.6 fl (80-96) 09/10/19 07:50 MCH 27.9 pg (25.7-33.7) 09/10/19 07:50 MCHC 33.8 g/dl (32.0-35.9) 09/10/19 07:50 RDW 15.3 % (11.9-15.9) 09/10/19 07:50 Plt Count 254 K/MM3 (134-434) 09/10/19 07:50 MPV 7.2 fl (7.5-11.1) L 09/10/19 07:50 Sodium 138 mmol/L (136-145) 09/10/19 07:50 Potassium 4.2 mmol/L (3.5-5.1) 09/10/19 07:50 Chloride 104 mmol/L (98-107) 09/10/19 07:50 Carbon Dioxide 29 mmol/L (21-32) 09/10/19 07:50 Anion Gap 5 MMOL/L (8-16) L 09/10/19 07:50 BUN 11.2 mg/dL (7-18) 09/10/19 07:50 Creatinine 0.7 mg/dL (0.55-1.3) 09/10/19 07:50 Est GFR (CKD-EPI)AfAm 118.05 09/10/19 07:50 Est GFR (CKD-EPI)NonAf 101.85 09/10/19 07:50 Random Glucose 101 mg/dL (74-106) 09/10/19 07:50 Calcium 8.5 mg/dL (8.5-10.1) 09/10/19 07:50 Total Bilirubin 0.4 mg/dL (0.2-1) 09/10/19 07:50 AST 15 U/L (15-37) 09/10/19 07:50 ALT 23 U/L (13-61) 09/10/19 07:50 Alkaline Phosphatase 73 U/L (45-117) 09/10/19 07:50 Total Protein 7.0 g/dl (6.4-8.2) 09/10/19 07:50 Albumin 3.3 g/dl (3.4-5.0) L 09/10/19 07:50 RPR Titer Nonreactive (NONREACTIVE) 09/10/19 07:50 HIV 1&2 Antibody Screen Negative 09/10/19 07:50 HIV P24 Antigen Negative 09/10/19 07:50 lab noted Assessment: 09/11/19 11:23 opiate withdrawal sx Plan: continue methadone detox regimen
[2019-09-11] MEDS: THIAMINE HCL 100 MG TABLET (FP) PO SCH (22:14)
[2019-09-12] MEDS ORDERED: METHADONE HCL 10 MG TABLET (FOR DETOX USE ONLY) ONE (08:52)
[2019-09-12] MEDS ORDERED: METHADONE HCL 5 MG TABLET (FOR DETOX USE ONLY) ONE (08:52)
[2019-09-12 09:16] VITALS: BP 148/81; PULSE 50; TEMP 97.1
[2019-09-12] MEDS ORDERED: METHADONE (DETOX) 10 MG, METHADONE (DETOX) 5 MG PO ONE (10:00)
[2019-09-12] MEDS: amLODIPine BESYLATE 5 MG TABLET (FP) PO SCH (10:10)
[2019-09-12] MEDS: PRENATAL VITAMINS W/ FOLIC ACID TABLET (FP) PO SCH (10:10)
[2019-09-12] MEDS: METHOCARBAMOL 500 MG TABLET PO PRN (10:11)
--- NOTE | 2019-09-12 13:02 | DS ---
[facility] Detox Discharge Summary Admission Date: 09/09/19 Discharge Date: 09/12/19 - History Present History: Opioid Dependence Additional Comments: 59 years old male admitted on 09/09/19 for opiate withdrawal sx management treated with methadone detox regimen patient insists to leave the detox unit for personal business patient is alert oriented x 3 refuses cows refuses exist physical examine - Physical Exam Results Vital Signs: Vital Signs Temperature 97.1 F L 09/12/19 09:15 Pulse Rate 50 L 09/12/19 09:15 Respiratory Rate 18 09/12/19 09:15 Blood Pressure 148/81 09/12/19 09:15 O2 Sat by Pulse Oximetry (%) Pertinent Admission Physical Exam Findings: opiate withdrawal sx Laboratory Last Values WBC 9.0 K/mm3 (4.0-10.0) 09/10/19 07:50 RBC 4.46 M/mm3 (4.00-5.60) 09/10/19 07:50 Hgb 12.5 GM/dL (11.7-16.9) 09/10/19 07:50 Hct 36.8 % (35.4-49) 09/10/19 07:50 MCV 82.6 fl (80-96) 09/10/19 07:50 MCH 27.9 pg (25.7-33.7) 09/10/19 07:50 MCHC 33.8 g/dl (32.0-35.9) 09/10/19 07:50 RDW 15.3 % (11.9-15.9) 09/10/19 07:50 Plt Count 254 K/MM3 (134-434) 09/10/19 07:50 MPV 7.2 fl (7.5-11.1) L 09/10/19 07:50 Sodium 138 mmol/L (136-145) 09/10/19 07:50 Potassium 4.2 mmol/L (3.5-5.1) 09/10/19 07:50 Chloride 104 mmol/L (98-107) 09/10/19 07:50 Carbon Dioxide 29 mmol/L (21-32) 09/10/19 07:50 Anion Gap 5 MMOL/L (8-16) L 09/10/19 07:50 BUN 11.2 mg/dL (7-18) 09/10/19 07:50 Creatinine 0.7 mg/dL (0.55-1.3) 09/10/19 07:50 Est GFR (CKD-EPI)AfAm 118.05 09/10/19 07:50 Est GFR (CKD-EPI)NonAf 101.85 09/10/19 07:50 Random Glucose 101 mg/dL (74-106) 09/10/19 07:50 Calcium 8.5 mg/dL (8.5-10.1) 09/10/19 07:50 Total Bilirubin 0.4 mg/dL (0.2-1) 09/10/19 07:50 AST 15 U/L (15-37) 09/10/19 07:50 ALT 23 U/L (13-61) 09/10/19 07:50 Alkaline Phosphatase 73 U/L (45-117) 09/10/19 07:50 Total Protein 7.0 g/dl (6.4-8.2) 09/10/19 07:50 Albumin 3.3 g/dl (3.4-5.0) L 09/10/19 07:50 RPR Titer Nonreactive (NONREACTIVE) 09/10/19 07:50 HIV 1&2 Antibody Screen Negative 09/10/19 07:50 HIV P24 Antigen Negative 09/10/19 07:50 lab noted - Treatment Hospital Course: Detox Protocol Followed, Responded well Patient has Accepted a Rehab Referral to: community support approach - Medication Discharge Medications: Ambulatory Orders Naloxone HCl [Narcan] 4 mg NS ASDIR PRN #1 spray 09/11/19 - Diagnosis (1) Nicotine dependence Current Visit: Yes Status: Acute Qualifiers: Nicotine product type: cigarettes Substance use status: in withdrawal Qualified Code(s): F17.213 - Nicotine dependence, cigarettes, with withdrawal (2) Hypertension Current Visit: Yes Status: Chronic Qualifiers: Hypertension type: essential hypertension Qualified Code(s): I10 - Essential (primary) hypertension (3) Opioid dependence with withdrawal Current Visit: Yes Status: Acute - AMA Did Patient Leave Against Medical Advice: Yes
[2019-09-13] MEDS ORDERED: METHADONE HCL 10 MG TABLET (FOR DETOX USE ONLY) PO ONE (10:00)
[2019-09-14] MEDS ORDERED: METHADONE HCL 5 MG TABLET (FOR DETOX USE ONLY) PO ONE (06:00)
== END 2019-09-12 11:03 | disposition left against medical advice (07) | DRG 770 ==
LOC: YASAS 11:44 → Y3N 13:57
PROVIDERS: ADMIT Allergy & Immunology; ATTEND Allergy & Immunology
PROC: HZ2ZZZZ Detoxification Services for Substance Abuse Treatment (ICD-10-PCS; principal; 2019-09-09)
DX: F11.23 Opioid dependence with withdrawal (principal); F17.213 Nicotine dependence, cigarettes, with withdrawal; I10 Essential (primary) hypertension; H54.40 Blindness, one eye, unspecified eye; H54.50 Low vision, one eye, unspecified eye
CPT/HCPCS: 36415; 71046-TC-FY; 80053; 85027; 86593; 87389

== ENCOUNTER 2021-09-26 10:28 | Inpatient (IN) | payer OTHER ==
[2021-09-26] MEDS ORDERED: IBUPROFEN 400 MG TABLET (FP) PO PRN (11:06)
[2021-09-26] MEDS ORDERED: MAGNESIUM HYDROX 2400MG/30ML ORAL SUSPENSION 30 ML CUP PO PRN (11:06)
[2021-09-26] MEDS ORDERED: NICOTINE 10 MG CARTRIDGE (INHALER) IH PRN (11:06)
[2021-09-26] MEDS ORDERED: MAG HYDROX/AL HYDROX/SIMETH 30 ML UNIT-DOSE CUP PO PRN (11:06)
[2021-09-26] MEDS ORDERED: ACETAMINOPHEN 325 MG TABLET (FP) PO PRN ×2 (11:06)
[2021-09-26] MEDS ORDERED: METHOCARBAMOL 500 MG TABLET PO PRN (11:06)
[2021-09-26] MEDS ORDERED: MENTHOL/PHENOL 1 EACH UD MM PRN (11:06)
[2021-09-26] MEDS ORDERED: cloNIDine HCL 0.1 MG TABLET PO PRN (11:06)
[2021-09-26] MEDS ORDERED: BISMUTH SUBSALICYLATE 262 MG/15 ML BTL PO PRN (11:06)
[2021-09-26] MEDS ORDERED: MAGNESIUM CITRATE 300 ML BOTTLE PO PRN (11:06)
[2021-09-26] MEDS ORDERED: ONDANSETRON *ODT* 4 MG TABLET SL PRN (11:06)
[2021-09-26] MEDS ORDERED: methaDONE HCL 10 MG TABLET (FOR DETOX USE ONLY) PO ONE (11:06)
[2021-09-26 11:35] VITALS: BMI 25.0
[2021-09-26] MEDS: NICOTINE 14 MG/24 HOURS TOPICAL PATCH TD SCH (12:44)
[2021-09-26] MEDS: PRENATAL VITAMINS W/ FOLIC ACID TABLET (FP) PO SCH (12:45)
[2021-09-26] MEDS ORDERED: hydrOXYzine PAMOATE 25 MG CAPSULE (FP) PO SCH (14:00)
[2021-09-26] MEDS: MELATONIN 5 MG TABLETS PO SCH (22:17)
[2021-09-26] MEDS: THIAMINE HCL 100 MG TABLET (FP) PO SCH (22:17)
[2021-09-27] MEDS ORDERED: methaDONE HCL 10 MG TABLET (FOR DETOX USE ONLY) ONE (08:52)
[2021-09-27] MEDS: NICOTINE 14 MG/24 HOURS TOPICAL PATCH TD SCH (10:15)
[2021-09-27] MEDS: PRENATAL VITAMINS W/ FOLIC ACID TABLET (FP) PO SCH (10:15)
[2021-09-27] MEDS: PATIENT'S OWN MEDICATION (NON-FORMULARY) (Valsartan/Hydrochlorothiazide [Valsartan-Hctz 16 PO SCH (13:30)
[2021-09-27] MEDS: INSULIN SLIDING SCALE (NOVOLOG) 1 VIAL SQ SCH ×2 (17:55→23:19)
[2021-09-27] MEDS: ATORVASTATIN CA 80 MG TABLET (FP) PO SCH (23:00)
[2021-09-27] MEDS: MELATONIN 5 MG TABLETS PO SCH (23:00)
[2021-09-27] MEDS: THIAMINE HCL 100 MG TABLET (FP) PO SCH (23:00)
[2021-09-27] MEDS: hydrOXYzine PAMOATE 25 MG CAPSULE (FP) PO PRN (23:19)
[2021-09-28] MEDS: INSULIN SLIDING SCALE (NOVOLOG) 1 VIAL SQ SCH ×4 (06:59→22:45)
[2021-09-28] MEDS ORDERED: methaDONE HCL 10 MG TABLET (FOR DETOX USE ONLY) PO ONE (10:00)
[2021-09-28] MEDS: PRENATAL VITAMINS W/ FOLIC ACID TABLET (FP) PO SCH (10:12)
[2021-09-28] MEDS: ASPIRIN COATED 81 MG TABLET.EC PO SCH (10:12)
[2021-09-28] MEDS: NICOTINE 14 MG/24 HOURS TOPICAL PATCH TD SCH (10:12)
[2021-09-28] MEDS: PATIENT'S OWN MEDICATION (NON-FORMULARY) (Valsartan/Hydrochlorothiazide [Valsartan-Hctz 16 PO SCH (10:12)
[2021-09-28] MEDS: MELATONIN 5 MG TABLETS PO SCH (22:44)
[2021-09-28] MEDS: THIAMINE HCL 100 MG TABLET (FP) PO SCH (22:44)
[2021-09-28] MEDS: hydrOXYzine PAMOATE 25 MG CAPSULE (FP) PO PRN (22:44)
[2021-09-28] MEDS: ATORVASTATIN CA 80 MG TABLET (FP) PO SCH (22:45)
[2021-09-29] MEDS: INSULIN SLIDING SCALE (NOVOLOG) 1 VIAL SQ SCH ×4 (06:34→21:08)
[2021-09-29] MEDS ORDERED: methaDONE HCL 10 MG TABLET (FOR DETOX USE ONLY) ONE (08:49)
[2021-09-29] MEDS: PRENATAL VITAMINS W/ FOLIC ACID TABLET (FP) PO SCH (11:05)
[2021-09-29] MEDS: ASPIRIN COATED 81 MG TABLET.EC PO SCH (11:05)
[2021-09-29] MEDS: NICOTINE 14 MG/24 HOURS TOPICAL PATCH TD SCH (11:06)
[2021-09-29] MEDS: PATIENT'S OWN MEDICATION (NON-FORMULARY) (Valsartan/Hydrochlorothiazide [Valsartan-Hctz 16 PO SCH (11:06)
[2021-09-29 13:42] LABS: ALBUMIN 3.7 g/dl (3.4-5.0); CREATININE 1.1 mg/dL (0.55-1.3)
[2021-09-29 13:43] LABS: BILIRUBIN,TOTAL 0.3 mg/dL (0.2-1); CALCIUM 9.3 mg/dL (8.5-10.1); TOT PROT 7.5 g/dl (6.4-8.2)
[2021-09-29 13:45] LABS: BASO % 0.4 % (0-2.0); EOS % 1.8 % (0-4.5); HEMOGLOBIN 14.3 GM/dL (11.7-16.9); LYMPH % 32.4 % (8-40); MCH 27.4 pg (25.7-33.7); MCHC 32.4 g/dl (32.0-35.9); MEAN CELL VOLUME 84.4 fl (80-96); MEAN PLT VOLUME 7.4 fl (7.5-11.1); MONO % 6.3 % (3.8-10.2); NEUT % 59.1 % (42.8-82.8); PLATELET COUNT 257 10^3/uL (134-434); RBC 5.22 M/mm3 (4.00-5.60); RDW 15.3 % (11.9-15.9); WHITE BLOOD COUNT 9.8 K/mm3 (4.0-10.0)
[2021-09-29] MEDS ORDERED: traZODone HCL 50 MG TABLET (FP) PO SCH (22:00)
[2021-09-29] MEDS: THIAMINE HCL 100 MG TABLET (FP) PO SCH (23:04)
[2021-09-29] MEDS: ATORVASTATIN CA 80 MG TABLET (FP) PO SCH (23:04)
[2021-09-29] MEDS: MELATONIN 5 MG TABLETS PO SCH (23:04)
[2021-09-30] MEDS: INSULIN SLIDING SCALE (NOVOLOG) 1 VIAL SQ SCH (06:34)
[2021-09-30 09:26] VITALS: BP 111/64; PULSE 81; TEMP 97.6
[2021-09-30] MEDS ORDERED: methaDONE HCL 10 MG TABLET (FOR DETOX USE ONLY) PO ONE (10:00)
== END 2021-09-30 09:57 | disposition home or self-care (01) | DRG 773 ==
LOC: YASAS 10:28 → Y3N 11:15
PROVIDERS: ADMIT Allergy & Immunology; ATTEND Allergy & Immunology
PROC: HZ2ZZZZ Detoxification Services for Substance Abuse Treatment (ICD-10-PCS; principal; 2021-09-26)
DX: F11.23 Opioid dependence with withdrawal (principal); F17.210 Nicotine dependence, cigarettes, uncomplicated; E78.5 Hyperlipidemia, unspecified; H54.61 Unqualified visual loss, right eye, normal vision left eye; I73.89 Other specified peripheral vascular diseases; I25.10 Atherosclerotic heart disease of native coronary artery without angina pectoris; I10 Essential (primary) hypertension; Z95.5 Presence of coronary angioplasty implant and graft; E11.9 Type 2 diabetes mellitus without complications; Z79.899 Other long term (current) drug therapy
CPT/HCPCS: 36415; 71046-TC-FY; 80053; 82962; 85025; 86780; C9803; U0003; U0005